=== PATIENT | female | born 1940 | race Caucasian/White ===

== ENCOUNTER → 2016-09-21 | Outpatient (CLI) | payer MEDICARE, OTHER | LOC: LAB.NP 17:26 | PROVIDERS: ATTEND Family Medicine | DX: D51.3 Other dietary vitamin B12 deficiency anemia (principal); E55.9 Vitamin D deficiency, unspecified ==

== ENCOUNTER 2017-03-21 21:40 | Observation (INO) | payer MEDICARE, OTHER ==
[2017-03-21] MEDS ORDERED: diazePAM 2 MG TAB PO ONE (22:01)
[2017-03-21] MEDS ORDERED: HYDROcodone 10MG/APAP 325MG 1 EA TAB PO ONE (22:01)
--- NOTE | 2017-03-21 22:52 | CT ---
PROCEDURE: Lumbar Spine CLINICAL HISTORY: 76 years ,Female ,low back and pelvic pain after fall with prev fx COMPARISON: 03/29/2016 TECHNIQUE: Contiguous axial images obtained through the lumbar spine without IV contrast. Coronal and sagittal reformatted images obtained. This exam was performed according to our department optimization program which includes automated exposure control, adjustment of the mA and/or kv according to patient size and/or use of iterative reconstruction technique. FINDINGS: There is leftward convexity lumbar curvature. 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 There is complete loss of the disc interspace at L5-S1 with subchondral sclerosis and vacuum disc phenomenon. There is moderate compression at L2 treated with vertebroplasty. The fracture was present on the previous examination but there has been small amount of interval loss of height as compared to the previous study. There is a new acute appearing compression fracture at T12 with mild loss of height. There is mild retropulsion with mild flattening of the anterior aspect of the thecal sac. T12-L1 level is unremarkable. At L1-2 there is mild narrowing of the central canal as a result of retropulsion of the posterior cortex and there is mild neural foraminal narrowing. L2-3: No significant central canal stenosis. L3-4: Mild disc bulging and facet arthropathy with mild narrowing of the central canal and neural foramina. L4-5: Mild bilateral neural foraminal stenosis. L5-S1: There is no central canal stenosis. There is severe bilateral neural foraminal stenosis worse on the left. There is also a fracture involving the superolateral aspect of the L5 vertebral body on the left which extends into the pedicle and superior articulating facet. IMPRESSION: Acute/subacute fracture at T12 with mild loss of height and mild retropulsion which results in flattening of the anterior aspect of the thecal sac Acute/subacute appearing fracture involving the left superolateral aspect of the L5 vertebral body extending into the pedicle and the left superior articulating facet Moderate chronic compression at L2 with vertebroplasty changes. There has been some interval progression of loss of height as compared to the previous study Additional changes as described above including bilateral L5 spondylolysis with grade 2 anterolisthesis. Electronically signed by: Natasha Ramos 03/21/2017 10:50 PM CDT
--- NOTE | 2017-03-21 22:59 | CT ---
PROCEDURE: Pelvis CLINICAL HISTORY: 76 years ,Female ,low back and pelvic pain after fall with prev fxr COMPARISON: None. TECHNIQUE: Contiguous axial images obtained through the pelvis without IV contrast. Coronal and sagittal reformatted images obtained. This exam was performed according to our department optimization program which includes automated exposure control, adjustment of the mA and/or kv according to patient size and/or use of iterative reconstruction technique. FINDINGS: Bilateral L5 spondylolysis with grade 2 anterolisthesis of L5 on S1. Fracture along the left superolateral aspect of the L5 vertebral body extending into the pedicle and the superior articulating facet on the left. The SI joints appear intact. Some irregularity of the right sacral ala which may reflect a previous fracture. The proximal femora appear intact. Diverticulosis. IMPRESSION: Acute or subacute fracture along the left aspect of L5 extending to the pedicle and left superior articulating facet Chronic L5 spondylolysis with grade 2 anterolisthesis No acute pelvic fracture noted Diverticulosis Question chronic right sacral alar fracture. Electronically signed by: Natasha Ramos 03/21/2017 10:58 PM CDT
--- NOTE | 2017-03-22 00:03 | ED.PDOC ---
History of Present Illness - General Chief Complaint: Back Pain or Injury Stated Complaint: back pain after falling Time Seen by Provider: 03/21/17 21:46 Source: patient Exam Limitations: no limitations - History of Present Illness Initial Comments: The patient is a 76-year-old female that fell at home today. She was bending over to pick something up while cooking supper when she lost her balance and fell backwards. She landed with her buttocks and back on the floor and her head hit the corner of the door. There is no laceration and no loss of consciousness. No evidence of any concussion. The patient has a mild bruise to her left forearm. She has a mild skin abrasion to her right knee. She is moving all extremities well. Most of her pain appears to be from S1 through about T11 clinically. The patient has had significant osteoporosis in the past and has had have kyphoplasty due to compression fracture from a previous fall. She appears to be neurologically at her baseline. This fall occurred approximately 2-3 hours prior to arrival. The patient is unable to get around on her own at this time. She was able to prior. Limitation is pain. Timing/Duration: momentarily Severity: severe Improving Factors: immobilization Worsening Factors: movement Associated Symptoms: denies symptoms Allergies/Adverse Reactions: Allergies Penicillins Allergy (Unknown, Verified 03/17/15 15:31) Omeprazole [From Prilosec] Allergy (Verified 03/29/16 16:22) Pneumococcal Polysaccharides [From Pneumovax] Allergy (Verified 03/17/15 15:31) Sulfamethoxazole w/Trimethoprim [From Bactrim] Allergy (Verified 03/17/15 15:31) Tetanus Toxoid Allergy (Verified 03/17/15 15:31) Home Medications: Ambulatory Orders HYDROcodone 10MG/APAP 325MG [[place] 10/325] 1 ea PO PRN PRN 03/25/13 Furosemide 40 mg PO DAILY 03/17/15 Multiple Vitamin [Multi Vitamin Daily] 1 tab PO DAILY 03/17/15 Spironolactone 100 mg PO DAILY 03/17/15 Tramadol HCl 50 mg PO QID 03/17/15 Ascorbic Acid [Vitamin C] 250 mg PO DAILY 03/29/16 Lactulose 10 gm PO DAILY 03/29/16 Sertraline HCl 100 mg PO DAILY 03/29/16 Review of Systems - Review of Systems Constitutional: States: no symptoms reported EENTM: States: no symptoms reported Respiratory: States: no symptoms reported Cardiology: States: no symptoms reported Gastrointestinal/Abdominal: States: no symptoms reported Genitourinary: States: no symptoms reported Musculoskeletal: States: back pain Skin: States: see HPI Neurological: States: anxiety Endocrine: States: no symptoms reported All other Systems: No Change from Baseline Past Medical History (General) - Patient Medical History Hx of COPD: Yes Hx Congestive Heart Failure: No Hx Diabetes: No Hx Gastroesophageal Reflux: Yes - Vaccination History Hx Tetanus, Diphtheria Vaccination: No - allergic to Hx Influenza Vaccination: Yes Hx Pneumococcal Vaccination: No - Social History Hx Tobacco Use: Yes - quit in 1997 Family Medical History - Family History Mother Family History: Unknown Physical Exam - Physical Exam General Appearance: Alert, Comfortable, No apparent distress Eye Exam: bilateral normal Ears, Nose, Throat: hearing grossly normal, normal ENT inspection, normal pharynx Neck: non-tender, full range of motion, supple Respiratory: chest non-tender, lungs clear, normal breath sounds, no respiratory distress, no accessory muscle use Cardiovascular/Chest: normal peripheral pulses, no edema Peripheral Pulses: radial,right: 2+, radial,left: 2+, dorsalis pedis,right: 2+, dorsalis pedis,left: 2+ Gastrointestinal/Abdominal: non tender, soft Rectal Exam: deferred Back Exam: other - the patient has tenderness to palpation over the spinous process of T12 or L1. No definite step-off. I see no bruising there. She is also tender to palpation adjacent to that. She hasn't noticed palpation but less so around the L4-S1 region. No skin laceration in that area. Extremity: normal range of motion, non-tender, no pedal edema, no calf tenderness, normal capillary refill Neurologic: toggler II-XII nml as tested, alert, oriented x 3 Skin Exam: normal color - multiple chronic bruises.skin abrasion to the right lateral knee Comments: . Vital Signs - 24 hr 03/21/17 21:46 Temperature 97.7 F Pulse Rate [ 80 Left] Respiratory 22 Rate Blood Pressure 124/68 [left] O2 Sat by Pulse 100 Oximetry Progress - Progress Progress: 03/22/17 00:05 the patient is a 76-year-old female presenting to the emergency room secondary to a fall with new and worsening back pain. The patient appears to have a new T12 compression fracture. There is also a linear fracture at L5 extending into one of the pedicles. It is not for certain that this is a new fracture. She also appears to have an old sacral ala fracture. The patient is not functional at this time due to pain. The patient will be admitted for pain control. Therapy may be able to evaluate in the morning and see what her functional status is going to be. the patient may yet need kyphoplasty in the future for pain control. Departure - Departure Clinical Impression: Thoracic compression fracture Qualifiers: Encounter type: initial encounter Fracture type: closed Qualified Code(s): S22.000A - Wedge compression fracture of unspecified thoracic vertebra, initial encounter for closed fracture Disposition: Admit Patient Home Medications: Ambulatory Orders HYDROcodone 10MG/APAP 325MG [[place] 10/325] 1 ea PO PRN PRN 03/25/13 Furosemide 40 mg PO DAILY 03/17/15 Multiple Vitamin [Multi Vitamin Daily] 1 tab PO DAILY 03/17/15 Spironolactone 100 mg PO DAILY 03/17/15 Tramadol HCl 50 mg PO QID 03/17/15 Ascorbic Acid [Vitamin C] 250 mg PO DAILY 03/29/16 Lactulose 10 gm PO DAILY 03/29/16 Sertraline HCl 100 mg PO DAILY 03/29/16 Decision To Admit - Decistion To Admit Decision to Admit Reason: Accidental Injury Decision to Admit Date: 03/22/17 Decision to Admit Time: 00:08
[2017-03-22] MEDS ORDERED: MAGNESIUM HYDROXIDE 30 ML UD PO PRN (00:25)
[2017-03-22] MEDS ORDERED: HYDROcodone 5MG/APAP 325MG 1 EA TAB PO PRN (00:25)
[2017-03-22] MEDS ORDERED: SODIUM CHLORIDE 0.9% (FLUSH) 10 ML SYG IV PRN (00:25)
[2017-03-22] MEDS ORDERED: IV SET AND CAP CHANGE INJ INJ SCH (00:30)
[2017-03-22] MEDS ORDERED: HYDROmorphone HCL INJ 2 MG/ML VIAL IV PRN (00:33)
--- NOTE | 2017-03-22 00:34 | HP ---
SUPERVISING PHYSICIAN: Scott Montero M.D. CHIEF COMPLAINT: Back pain status post same level fall. HISTORY OF PRESENT ILLNESS: Ms. King is a 76 year-old female patient that presented to the Emergency Department on 03/21/17 initially after she sustained a same level fall at home. She noted she was bent over to hot die picker something while she was cooking supper, lost her balance and fell backwards. She apparently landed on her buttocks on the floor as well as she hit her head on the corner of a door. She denies any loss of consciousness. She presented with a significant amount of pain from S1 through about T11. She does have a significant history of osteoporosis in the past having had a kyphoplasty due to a previous compression fracture this past fall. A CT scan of both her lumbar and pelvis were completed in the Emergency Department prior to admission and per radiology interpretation there was note of an acute subacute fracture at T12 with mild loss of height and mild retropulsion which resulted in flattening of the anterior aspect of the thecal sac. There was also note of an acute subacute appearing fracture involving the left superolateral aspect of the L5 vertebral body that was extending up in to the pedicle and left superior articulating facet. Given the degree of pain and requiring IV medications for pain control, and the CT findings, the patient was placed in observation on 03/22/17 for further evaluation with physical therapy and better pain control with IV pain medicine. She is placed in observation in stable condition. PAST MEDICAL HISTORY: 1. Hyperlipidemia. 2. Chronic obstructive pulmonary disease. 3. Previous H. pylori infection in summer treated successfully. 4. Rheumatoid arthritis. 5. Osteoporosis. PAST SURGICAL HISTORY: 1. Endometrial ablation in 1989. 2. Laparoscopic cholecystectomy with IOC by Dr. Ramos in 2014. 3. L2 kyphoplasty by Dr. Edwards on 03/30/16. HOME MEDICATIONS: 1. Linzess 145 mcg daily. 2. [place] 10/325, one as needed. 3. Lasix 40 mg daily. 4. Vitamin C 250 mg daily. 5. Tramadol 50 mg q.i.d. 6. Spironolactone 100 mg daily. 7. Multivitamin daily 1 tablet. ALLERGIES: PENICILLIN, SULFONAMIDES, FLUOXETINE, PRILOSEC, PNEUMOCOCCAL POLYSACCHARIDES AND TETANUS TOXOID. 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 She is and lives in [place]. Notes that she had a past history of cigarette smoking but quit with a 42 pack year history in 1997. She does drink alcohol on a social basis only. She does not use illicit drugs. REVIEW OF SYSTEMS: CONSTITUTIONAL: Denies any weakness, chills, fevers, unintentional weight loss. HEENT: Denies any vision changes, but notes this morning on admission she does have a headache from previous fall and hitting her head. RESPIRATORY: Denies any shortness of breath, cough, congestion. CARDIOVASCULAR: Denies any chest pains, palpitations or syncopal episodes. GASTROINTESTINAL: Denies any nausea, vomiting, diarrhea or any bowel habit changes. GENITOURINARY: Denies any dysuria, hematuria or other urinary symptoms. MUSCULOSKELETAL: As noted in the history of present illness, severe back pain status post fall. NEUROLOGIC: Does note she had some anxiety but no other neurologic or motor deficits. PHYSICAL EXAMINATION: VITAL SIGNS: Temperature 97.7, pulse 80, blood pressure 124/68, satting 100% with respiratory effort of 22. Weight is 54.8 kg. GENERAL: The patient is alert, comfortable on admission to the Medical/ Surgical floor. She appears to be in no acute distress. HEENT: Tympanic membranes are clear bilaterally. Oropharynx is pink and moist without any lesions. NECK: No jugular venous distention. Neck was supple, non-tender. Full range of motion. CHEST: Lungs are clear to auscultation bilaterally without any rhonchi, wheezing or rales. CARDIOVASCULAR: Regular rate and rhythm without appreciable murmurs, gallops, or rubs. ABDOMEN: Soft, non-tender. Positive bowel sounds. BACK: There is note of tenderness over the spinous process of T12 and L1, but no notable step-offs. She does have some paraspinous tenderness around the same area. No other traumatic injuries are noted. EXTREMITIES: She moves all extremities ad sofia with no weaknesses noted. There is no clubbing, cyanosis or edema. NEUROLOGIC: Cranial nerves II-XII are grossly intact. Facial features are symmetrical. Extraocular movements are within normal limits. There was no notable nystagmus. There is no notable neuromotor deficits. LABORATORY: CBC on admission showed a normal white count at 7.6 with hemoglobin 13.6, hematocrit 40.4, platelet count 265,000. Differential shows to be within normal limits. Chemistries show normal electrolytes with potassium 3.9, BUN 24, creatinine 0.95. Liver functions showed to be within normal limits. Urinalysis showed to be within normal limits. RADIOLOGY: She had a pelvis and lumbar CT in the E. R. and per radiology interpretation there was note on the lumbar spine CT a subacute acute fracture of T12 with mild loss of height and mild retropulsion which have resulted in flattening of the anterior aspect of the thecal sac. Also of note was subacute versus acute-appearing fracture involving the left superolateral aspect of the L5 vertebral body extending into the pedicle in the left superior articulating facet. CT of the pelvis was note of acute and subacute fracture along the left aspect of L5 extending to the pedicle and left superior articulating facet and chronic L5 spondylosis with grade 2 anterior lithiasis but no acute pelvic fractures noted. At time of admission, a cervical spine CT and head CT were pending. ASSESSMENT: 1. Acute subacute fracture of T12 compression fracture with an L5 fracture involving the left superolateral pedicle and the left superior articulating facet. 2. Same level fall resulting in fractures as noted in number 1. 3. History of osteoporosis probably contributing to recent fractures with the patient having a history of multiple falls over the last several months. 4. Chronic obstructive pulmonary disease without noted exacerbation. 5. Rheumatoid arthritis. PLAN: The patient will be placed in Observation tonight to assist with pain control and to have Physical Therapy evaluation in the morning. The fracture appears to be stable at this point. Should she show good ability to control pain with p.o. medications and is cleared by Physical Therapy, conservative treatment will be warranted with considerations for kyphoplasty in the near future after further evaluation with an MRI upon discharge. [facility] did make a referral in case the patient needed some adjunct faculty for medical terminology rehab facility assistance, but at this point the patient's discharge plan is to discharge home with conservative measures. Again, will reevaluate in the morning with anticipation of discharging. Until then, will continue to monitor and treat appropriately. #[id number] [facility]
[2017-03-22] MEDS: KETOROLAC TROMETHAMINE INJ 30 MG/ML VIAL IV SCH ×3 (02:01→17:16)
[2017-03-22] MEDS: SODIUM CHLORIDE 0.9% 1000ML 1,000 ML IVS PRN (03:03)
--- NOTE | 2017-03-22 10:02 | CT ---
Study: CT of the Head. Indication: s/p fall same level Technique: Axial CT images of the head were acquired without intravenous contrast. This exam was performed according to our departmental dose-optimization program, which includes automated exposure control, adjustment of the mA and/or kV according to patient size and/or use of iterative reconstruction technique. Comparison: March 28, 2016. Findings: No CT evidence of acute ischemia, acute hemorrhage, mass, mass effect, midline shift, or extra-axial fluid collection. Ventricles are normal in configuration without hydrocephalus. Patchy hypoattenuation of the periventricular and subcortical white matter noted. This is nonspecific but most consistent with chronic microvascular ischemic change. Global parenchymal volume loss and intracranial atherosclerosis noted as well. Paranasal sinuses are adequately aerated. Mastoid air cells are adequately aerated. Osseous structures and soft tissues are unremarkable. Impression: 1. No CT evidence of acute intracranial abnormality. 2. Senescent changes. Electronically signed by: Tony Ha MD 03/22/2017 10:00 AM CDT
--- NOTE | 2017-03-22 10:27 | CT ---
Study: CT cervical spine. Indication: s/p fall injury with neck pain. Technique: Axial CT images were acquired through the cervical spine without intravenous contrast. Coronal and sagittal reformats performed. This exam was performed according to our departmental dose-optimization program, which includes automated exposure control, adjustment of the mA and/or kV according to patient size and/or use of iterative reconstruction technique. Comparison: None. Findings: No acute cervical fracture identified. Vertebral body height maintained. Reversal of normal cervical lordosis. Trace anterolisthesis C4 on C5 which appears to be degenerative in etiology. Multilevel cervical disc disease noted and most pronounced at C5-C6 where there is severe disc space height loss and disc osteophyte formation. At least mild spinal canal narrowing and mild left and moderate right neural foraminal narrowing at this level. Atherosclerosis carotid arteries. Impression: No CT evidence of acute cervical fracture. Cervical disc disease as above. Dedicated MRI cervical spine can better evaluate as clinically indicated. Electronically signed by: Tony Ha MD 03/22/2017 10:25 AM CDT
[2017-03-22] MEDS: HYDROcodone 10MG/APAP 325MG 1 EA TAB PO PRN (17:15)
[2017-03-22] MEDS ORDERED: HYDROcodone 10MG/APAP 325MG 1 EA TAB PO PRN (19:40)
--- NOTE | 2017-03-22 19:42 | PCM.CORE ---
Physician DVT/VTE - Nurse DVT Assessment & Total Each Risk Factor Represents 3 Points: Age over 75 years DVT Assessment Score: 3 - 3-4 High Risk Treatments: Early Ambulation *, Sequential Compression Device Pharmacological: Enoxaparin 40 mg SQ Daily
[2017-03-22] MEDS ORDERED: ENOXAPARIN SODIUM 40 MG/0.4 ML SYG SUBCU ONE (20:03)
[2017-03-22] MEDS ORDERED: traMADol HCL 50 MG TAB ONE (20:03)
[2017-03-22] MEDS: traMADol HCL 50 MG TAB PO SCH (20:28)
[2017-03-22] MEDS: ENOXAPARIN SODIUM 40 MG/0.4 ML SYG SUBCU SCH ×2 (20:28→20:33)
[2017-03-23] MEDS: KETOROLAC TROMETHAMINE INJ 30 MG/ML VIAL IV SCH ×2 (00:48→09:26)
[2017-03-23] MEDS: SODIUM CHLORIDE 0.9% 1000ML 1,000 ML IVS PRN (04:26)
[2017-03-23 06:35] VITALS: O2SAT 96
[2017-03-23] MEDS ORDERED: SPIRONOLACTONE 25 MG TAB ONE (07:19)
[2017-03-23] MEDS ORDERED: ASCORBIC ACID 500 MG TAB ONE (07:19)
[2017-03-23] MEDS ORDERED: FUROSEMIDE 40 MG TAB ONE (07:19)
[2017-03-23] MEDS ORDERED: traMADol HCL 50 MG TAB ONE ×2 (07:20→11:22)
[2017-03-23] MEDS: HYDROcodone 10MG/APAP 325MG 1 EA TAB PO PRN (08:06)
[2017-03-23] MEDS ORDERED: MULTIPLE VITAMIN 1 EA TAB PO SCH (09:00)
[2017-03-23] MEDS ORDERED: NON-FORMULARY MEDICATION 1 EA MIS (Linaclotide [Linzess] 145 MCG) PO SCH (09:00)
[2017-03-23] MEDS ORDERED: FUROSEMIDE 40 MG TAB PO SCH (09:00)
[2017-03-23] MEDS ORDERED: ASCORBIC ACID 500 MG TAB PO SCH (09:00)
[2017-03-23] MEDS ORDERED: SPIRONOLACTONE 25 MG TAB PO SCH (09:00)
[2017-03-23] MEDS: traMADol HCL 50 MG TAB PO SCH ×2 (09:27→12:54)
[2017-03-23 10:22] VITALS: BP 144/80; TEMP 98.3
--- NOTE | 2017-03-25 13:34 | DS ---
SUPERVISING PHYSICIAN: Scott Montero MD DISCHARGE DIAGNOSIS: 1. Acute subacute fracture of T12 compression fracture with an L5 fracture involving the left superolateral pedicle and the left superior articulating facet and chronic ongoing pain management. 2. Same level fall resulting in fractures as noted in number 1. 3. History of osteoporosis probably contributing to recent fractures with the patient having a history of multiple falls over the last several months. 4. Chronic obstructive pulmonary disease without noted exacerbation. 5. Rheumatoid arthritis. HISTORY OF PRESENT ILLNESS: Ms. King is a 76 year-old female patient that presented to the Emergency Department on 03/21/17 initially after she sustained a same level fall at home. 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 She apparently landed on her buttocks on the floor as well as she hit her head on the corner of a door. She denies any loss of consciousness. She presented with a significant amount of pain from S1 through T11. She does have a significant history of osteoporosis in the past having had a kyphoplasty due to a previous compression fracture from past falls. A CT scan of both her lumbar and pelvis were completed in the Emergency Department and prior to admission and per radiology interpretation there was note of an acute subacute fracture involving T12 with mild loss of height and mild retropulsion which resulted in flattening of the anterior aspect of the thecal sac. There was also note of an acute subacute appearing fracture involving the left superolateral aspect of the L5 vertebral body which extended up into the pedicle and left superior articulating facet. Given the degree of pain and requiring IV medications for pain control and CT findings, the patient was placed in observation on 03/22/17 for further evaluation with physical therapy and to obtain a better pain control with IV medicine and further observation. She was placed in observation in stable condition. LABORATORY: CBC on admission showed a white count of 7.6, at discharge it was 5.9. Hemoglobin and hematocrit were stable at 12.8 and 38.0 at discharge. Platelet count 329,000, differential was within normal limits. Chemistries showed normal electrolytes both on admission and at discharge with the final being under 14 and creatinine of 0.58. Calcium was normal at 8.2. Liver functions showed to be within normal limits. Urinalysis showed to be within normal limits. RADIOLOGY: She had a lumbar spine CT and a pelvis CT in the Emergency Department prior to admission and per radiology interpretation there was note of an acute subacute fracture at T12 with mild loss of height and mild retropulsion which resulted in flattening of the anterior aspect of the thecal sac. There was also note of an acute subacute appearing fracture involving the left superolateral aspect of L5 and the vertebral body extending into the pedicle and left superior articular facet. There is also note of moderate chronic compression at L2 with vertebroplasty changes. Pelvis CT per radiology interpretation showed no acute pelvic fracture. There was also question of a chronic right sacral ulnar fracture. After admission to the medical/surgical floor she had a cervical spine CT and per radiology interpretation was note of no CT evidence of acute cervical fracture but notable cervical disk disease. Please refer to that final report for full details. She also had a head CT without contrast on admission and per radiology interpretation there was no CT evidence of acute intracranial abnormalities. HOSPITAL COURSE: Ms. King was admitted as noted above for acute compression fracture requiring IV pain medication initially for pain control and evaluation by physical therapy. She was provided Dilaudid for pain control and then transitioned to p.o. [place] prior to discharge. She clinically did well. She showed no neurological symptoms, had no increase in pain and was cleared by physical therapy as safe to be discharged home to be followed up in outpatient clinical setting. PLAN: Ms. King was discharged on 03/23/17 with instructions to followup with Dr. Jara on 04/04/17 at 9 o'clock. She is also scheduled for an MRI prior to that appointment of the T-spine and L-spine without contrast with those results to be sent to Dr. Jara' office. She was told to resume her home medications as directed that included [place] for pain control as well as Tramadol. She is to return to the hospital or call Dr. Jara' office if any numbness is noted in her legs, change in sensations or any weakness occurrence, worsening of pain or other concerning symptoms. She was given a complete neurological precautions prior to discharge. She also did have a consultation by [facility] should she show the need for continued rehabilitation once she is seen in an outpatient setting. DISCHARGE DIET: Regular diet as tolerated. ACTIVITY: No heavy lifting no jumping, no strenuous exercises until seen in followup by Dr. Jara' office. No new prescriptions were provided at discharge. She was to resume all her previous medications. DISCHARGE CONDITION: Stable and improved. #[id number] KERRY
== END 2017-03-23 13:39 | disposition home or self-care (01) ==
LOC: ER 21:40 → MS 03-22 00:32
PROVIDERS: ADMIT Emergency Medicine; ATTEND Nurse Practitioner Family
DX: S22.080A Wedge compression fracture of T11-T12 vertebra, initial encounter for closed fracture (principal); S32.058A Other fracture of fifth lumbar vertebra, initial encounter for closed fracture; S09.8XXA Other specified injuries of head, initial encounter; M81.0 Age-related osteoporosis without current pathological fracture; J44.9 Chronic obstructive pulmonary disease, unspecified; M06.9 Rheumatoid arthritis, unspecified; M50.322 Other cervical disc degeneration at C5-C6 level; M43.06 Spondylolysis, lumbar region; M48.06 Spinal stenosis, lumbar region; R10.2 Pelvic and perineal pain; K57.30 Diverticulosis of large intestine without perforation or abscess without bleeding; W18.39XA Other fall on same level, initial encounter; Y93.89 Activity, other specified; Y92.000 Kitchen of unspecified non-institutional (private) residence as the place of occurrence of the external cause; Z79.899 Other long term (current) drug therapy; Z88.0 Allergy status to penicillin; Z88.2 Allergy status to sulfonamides; Z88.7 Allergy status to serum and vaccine; Z88.8 Allergy status to other drugs, medicaments and biological substances; Z87.891 Personal history of nicotine dependence; Z90.49 Acquired absence of other specified parts of digestive tract
CPT/HCPCS: 36415 ×2; 70450; 72125; 72131; 72192; 80053 ×2; 81001; 85025 ×2; 94760 ×3; 96374; 96375; 96376 ×2; 97116; 97162; 99284; G0378; G8978; G8979; G8980; J1170; J1885 ×5; J7030 ×3

== ENCOUNTER → 2017-04-04 | Outpatient (CLI) | payer MEDICARE, OTHER ==
--- NOTE | 2017-04-06 16:24 | MRI ---
EXAM DESCRIPTION: Thoracic Spine w/o Contrast CLINICAL HISTORY: BACK PAIN. Symptoms for one week. Unable to bend or walk for long periods. Fall at home. Hit back on tile floor. COMPARISON: None Available. TECHNIQUE: MRI of the thoracic spine is performed according to our usual protocol with axial and sagittal multi sequence imaging. FINDINGS: There are acute compression fractures of the T10 and T12 vertebral bodies. There is up to 30% loss of stature at T10 along the inferior endplate. There is up to 30% loss of stature at T12 along the superior endplate. There is 2 mm bony retropulsion along the superior endplate of T12. Remaining vertebral body statures maintained. Multilevel large hemangiomas are demonstrated throughout the thoracic levels, the largest of which is at T11. Mild multilevel thoracic disc desiccation. There is no significant disc bulge, spinal canal, or neural foraminal stenosis. Normal size and signal in the thoracic spinal cord. IMPRESSION: 1. Acute compression fractures of the T10 and T12 vertebral bodies. These would be amenable to vertebral body augmentation. 2. Mild multilevel thoracic spondylosis. Electronically signed by: Camden Rey MD 04/06/2017 4:22 PM CDT
--- NOTE | 2017-04-06 17:15 | MRI ---
EXAM DESCRIPTION: Lumbar Spine w/o Contrast CLINICAL HISTORY: BACK PAIN. Recent fall at home. Hit back on tile floor. Pain with bending or walking. COMPARISON: CT lumbar spine 03/21/2017 TECHNIQUE: MRI of the lumbar spine is performed according to our usual protocol with axial and sagittal multi sequence imaging. FINDINGS: The designated L5-S1 disc space is on axial T2 image 3. There is moderate levoconvex curvature of the mid lumbar spine. An acute compression fracture of the T12 vertebral body is demonstrated with up to 30% loss of stature along the superior endplate. 2 mm bony retropulsion along the superior endplate without evidence of spinal canal stenosis. There is a chronic compression fracture of the L2 vertebral body which is post augmentation. There is chronic bilateral L5 spondylolysis with grade 2 spondylolisthesis of L5 on S1 by up to 13 mm again demonstrated. The fracture line in the left superolateral aspect of L5 extending into the posterior elements is demonstrated on today's exam, but shows no associated edema, and is most consistent with a chronic fracture. The conus medullaris terminates normally. L1-2: Disc desiccation with mild disc narrowing. Mild facet hypertrophy. Slight bony retropulsion along the right posterolateral aspect of the superior L2 endplate with mild right neural foraminal stenosis. The spinal canal and left neural foramen are patent. L2-3: Disc desiccation. Mild disc narrowing. Mild facet hypertrophy with ligamentum flavum thickening. No spinal canal or neural foraminal stenosis. L3-4: Disc desiccation. Disc height is preserved. Moderate facet hypertrophy with ligamentum flavum thickening. Minimal posterior disc bulge with mild bilateral neural foraminal stenosis. The spinal canal is patent. L4-5: Disc desiccation. Moderate facet hypertrophy with ligamentum flavum thickening. Small posterior disc osteophyte complex with no spinal canal or neural foraminal stenosis. L5-S1: Bilateral L5 spondylolysis with grade 2 spondylolisthesis. Uncovering and posterior bulging of the disc with severe left greater than right neural foraminal stenosis. The spinal canal is patent. IMPRESSION: 1. Acute compression fracture of the T12 vertebral body. This would be amenable to vertebral body augmentation. 2. 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 3. Chronic compression fracture at L2 which is post augmentation 4. Other findings as above. Electronically signed by: Camden Rey MD 04/06/2017 5:12 PM CDT
== END ==
LOC: MRI 13:58
PROVIDERS: ATTEND Family Medicine
DX: S22.089A Unspecified fracture of T11-T12 vertebra, initial encounter for closed fracture (principal); S32.059A Unspecified fracture of fifth lumbar vertebra, initial encounter for closed fracture

== ENCOUNTER → 2017-07-21 | Outpatient (CLI) | payer MEDICARE, OTHER | END | disposition home or self-care (01) | LOC: GMAL 13:05 | PROVIDERS: ATTEND Family Medicine | DX: D51.3 Other dietary vitamin B12 deficiency anemia (principal); E55.9 Vitamin D deficiency, unspecified ==

== ENCOUNTER → 2017-10-24 | Outpatient (CLI) | payer MEDICARE, OTHER | LOC: GMAL 17:53 | PROVIDERS: ATTEND Family Medicine | DX: I50.9 Heart failure, unspecified (principal) ==

== ENCOUNTER → 2018-03-01 | Outpatient (CLI) | payer MEDICARE, OTHER | LOC: GMAL 17:51 | PROVIDERS: ATTEND Family Medicine | DX: N30.00 Acute cystitis without hematuria (principal) ==

== ENCOUNTER 2018-06-03 14:55 | Emergency (ER) | payer MEDICARE, OTHER ==
[2018-06-03] MEDS ORDERED: POVIDONE IODINE 10 % 15 ML UD TOP ONE (15:12)
[2018-06-03 15:15] VITALS: TEMP 98.4; O2SAT 100
[2018-06-03] MEDS ORDERED: DOXYCYCLINE HYCLATE CAP 100 MG CAP PO ONE (15:20)
--- NOTE | 2018-06-03 15:24 | ED.PDOC ---
History of Present Illness - General Chief Complaint: Lower Extremity Injury Stated Complaint: cat scratch to leeg Time Seen by Provider: 06/03/18 15:07 Source: patient Exam Limitations: no limitations - History of Present Illness Initial Comments: the patient is a 77-year-old female presenting to the emergency room secondary to 2 lacerations to her left lower leg that were caused byher cat scratching her. The first is a smaller V-shaped laceration approximately a centimeter and a half in length on each leg. It is fairly deep. The second laceration is larger. Please refer to nurse's exact measurements. It is to the lateral left lower leg. On this one it is a large skin tear and the patient actually cut the dangling skin off so there is a large defect that we will be unable to cover back with skin. The patient reports being allergic to Augmentin. Timing/Duration: momentarily Severity: moderate Improving Factors: nothing Worsening Factors: nothing Associated Symptoms: denies symptoms Allergies/Adverse Reactions: Allergies Penicillins Allergy (Unknown, Verified 03/17/15 15:31) Omeprazole [From Prilosec] Allergy (Verified 03/29/16 16:22) Pneumococcal Polysaccharides [From Pneumovax] Allergy (Verified 03/17/15 15:31) Sulfamethoxazole w/Trimethoprim [From Bactrim] Allergy (Verified 03/17/15 15:31) Tetanus Toxoid Allergy (Verified 03/17/15 15:31) Home Medications: Ambulatory Orders HYDROcodone 10MG/APAP 325MG [[place] 10/325] 1 ea PO PRN PRN 03/25/13 Furosemide 40 mg PO DAILY 03/17/15 Multiple Vitamin [Multi Vitamin Daily] 1 tab PO DAILY 03/17/15 Spironolactone 100 mg PO DAILY 03/17/15 Tramadol HCl 50 mg PO QID 03/17/15 Ascorbic Acid [Vitamin C] 250 mg PO DAILY 03/29/16 Linaclotide [Linzess] 145 mcg PO DAILY 03/22/17 Doxycycline (Monohydrate) [Doxycycline] 100 mg PO DAILY #14 tab 06/03/18 Review of Systems - Review of Systems Constitutional: States: no symptoms reported EENTM: States: no symptoms reported Respiratory: States: no symptoms reported Cardiology: States: no symptoms reported Gastrointestinal/Abdominal: States: no symptoms reported Genitourinary: States: no symptoms reported Musculoskeletal: States: no symptoms reported Skin: States: see HPI Neurological: States: no symptoms reported Endocrine: States: no symptoms reported All other Systems: No Change from Baseline Past Medical History (General) - Patient Medical History Hx Seizures: No Hx Stroke: No Hx Asthma: No Hx of COPD: No Hx Congestive Heart Failure: No Hx Pacemaker: No Hx Hypertension: No Hx Diabetes: No Hx Gastroesophageal Reflux: Yes Hx MRSA: No - Vaccination History Hx Tetanus, Diphtheria Vaccination: No - Allergic Hx Influenza Vaccination: Yes Hx Pneumococcal Vaccination: No - Allergic - Social History Hx Tobacco Use: Yes Hx Alcohol Use: No Hx Substance Use: No Hx Physical Abuse: No Hx Emotional Abuse: No Family Medical History - Family History Mother Family History: Unknown Living Status: Hx Family Asthma: No Hx Family Congestive Heart Failure: Yes Hx Family Hypertension: No Hx Family Stroke: No Hx Cardiac Disease: No Hx Family Diabetes: No Hx Family Cancer: No Physical Exam - Physical Exam General Appearance: Alert, Comfortable, No apparent distress Eye Exam: bilateral normal Ears, Nose, Throat: hearing grossly normal, normal pharynx Neck: non-tender, supple Respiratory: no respiratory distress, no accessory muscle use Cardiovascular/Chest: normal peripheral pulses, no edema Peripheral Pulses: dorsalis pedis,right: 2+, dorsalis pedis,left: 2+ Gastrointestinal/Abdominal: non tender, soft Rectal Exam: deferred Extremity: normal range of motion, no pedal edema, no calf tenderness - except under the laceration sites, normal capillary refill Neurologic: tie in hand II-XII nml as tested, alert, normal mood/affect, oriented x 3 Skin Exam: other - see history of present illness. See nurse's notes. Comments: Vital Signs - 24 hr 06/03/18 15:07 Temperature 98.4 F Pulse Rate [ 95 H Left Brachial] Respiratory 20 Rate Blood Pressure 156/97 [Left Arm] O2 Sat by Pulse 100 Oximetry Progress - Progress Progress: 06/03/18 15:45 the patient is a 77-year-old female presenting to the emergency room secondary to a large skin tear and a laceration to her left lower extremity caused by her house cat scratching her. There is a very large defect in the lateral skin tear. After risks and benefits of repair were explained the patient did agree to proceed with repair. The wounds were irrigated with Betadine and saline. One simple suture of 4-0 Ethilon was placed in the posterior laceration. Antibiotic ointment and Band-Aid were applied here. On the lateral skin tear 2 skin flaps were reapproximated proximally with 4 simple sutures of 4-0 Ethilon. There is still a large open defect secondary to lack of skin to reapproximate. We are unable to undermine to reduce the size of the defect secondary to thinness of the skin. A wet-to-dry dressing was applied. She is to follow-up with Dr. Jara tomorrow to decide what further longer-term dressings he wants her to use on this versus getting her set up for a skin graft. The patient is going to be placed on doxycycline 100 mg a day for 14 days. She needs to take this medication with food. ER warnings were given. She reports allergies to penicillin and tetanus so neither of these were given today. Departure - Departure Clinical Impression: Skin tear Disposition: Discharge to Home or Self Care Condition: Fair Departure Forms: ED Discharge - Pt. Copy, Patient Portal Self Enrollment Instructions: Laceration Repair With Stitches (DC) Diet: regular diet Activity: increase activity as tolerated Referrals: Umberto Jara III, MD [Primary Care Provider] - 1-2 Weeks Prescriptions: Doxycycline (Monohydrate) [Doxycycline] 100 mg PO DAILY #14 tab Home Medications: Ambulatory Orders HYDROcodone 10MG/APAP 325MG [[place] 10/325] 1 ea PO PRN PRN 03/25/13 Furosemide 40 mg PO DAILY 03/17/15 Multiple Vitamin [Multi Vitamin Daily] 1 tab PO DAILY 03/17/15 Spironolactone 100 mg PO DAILY 03/17/15 Tramadol HCl 50 mg PO QID 03/17/15 Ascorbic Acid [Vitamin C] 250 mg PO DAILY 03/29/16 Linaclotide [Linzess] 145 mcg PO DAILY 03/22/17 Doxycycline (Monohydrate) [Doxycycline] 100 mg PO DAILY #14 tab 06/03/18 Additional Instructions: the patient is a 77-year-old female presenting to the emergency room secondary to a large skin tear and a laceration to her left lower extremity caused by her house cat scratching her. There is a very large defect in the lateral skin tear. After risks and benefits of repair were explained the patient did agree to proceed with repair. The wounds were irrigated with Betadine and saline. One simple suture of 4-0 Ethilon was placed in the posterior laceration. Antibiotic ointment and Band-Aid were applied here. On the lateral skin tear 2 skin flaps were reapproximated proximally with 4 simple sutures of 4-0 Ethilon. There is still a large open defect secondary to lack of skin to reapproximate. We are unable to undermine to reduce the size of the defect secondary to thinness of the skin. A wet-to-dry dressing was applied. She is to follow-up with Dr. Jara tomorrow to decide what further longer-term dressings he wants her to use on this versus getting her set up for a skin graft. The patient is going to be placed on doxycycline 100 mg a day for 14 days. She needs to take this medication with food. ER warnings were given. She reports allergies to penicillin and tetanus so neither of these were given today.
[2018-06-03] MEDS ORDERED: NEOMYCIN-BACITRACIN-POLYMYXIN 0.9 GM UD TOP ONE (15:43)
[2018-06-03] MEDS ORDERED: KETOROLAC TROMETHAMINE INJ 30 MG/ML VIAL IM ONE (15:54)
[2018-06-03 16:15] VITALS: BP 141/77
== END 2018-06-03 16:15 | disposition home or self-care (01) ==
LOC: ER 14:55
DX: S81.812A Laceration without foreign body, left lower leg, initial encounter (principal); K21.9 Gastro-esophageal reflux disease without esophagitis; Z87.891 Personal history of nicotine dependence; Z88.0 Allergy status to penicillin; Z88.7 Allergy status to serum and vaccine; Z88.2 Allergy status to sulfonamides; Z88.8 Allergy status to other drugs, medicaments and biological substances; Z79.899 Other long term (current) drug therapy; W55.03XA Scratched by cat, initial encounter

== ENCOUNTER → 2019-06-20 | Outpatient (CLI) | payer MEDICARE, OTHER ==
[~2019-06-20] MED LIST: SODIUM CHLORIDE 0.9% 1000ML 1,000 ML IVS SCH
[2019-06-20 13:32] VITALS: BP 132/85; TEMP 98.2; O2SAT 96
--- NOTE | 2019-06-21 09:13 | CT ---
EXAM DESCRIPTION: Abdomen/Pelvis w/o Contrast: Computed Tomography. CLINICAL HISTORY: 78 years Female EPIGASTRIC PAIN. Afebrile. Normal white blood cell count. Early satiety. Epigastric and right lower quadrant pain. COMPARISON: Abdomen and pelvis without and with IV contrast May 2015. TECHNIQUE: Spiral-axial scans 2.5 x 2.5 mm intervals through the abdomen and pelvis without oral or IV contrast. Coronal and sagittal 2.0 mm reconstructions. Total Exam DLP: 384.19 mGy-cm. This exam was performed according to our departmental CT dose-optimization program which includes automated exposure control, adjustment of the mA and/or kV according to patient size and/or use of iterative reconstruction technique; to reduce radiation dose to as low as reasonably achievable (ALARA). FINDINGS: Lung bases and pleura: Minimal atelectasis left lung base. Coronary artery calcium. Liver, stomach, spleen, and adrenal glands: Moderate hiatal hernia containing fluid fluid and minimal air. New since the prior study. Moderate distention of the intra-abdominal stomach with air-fluid level. Minimal distention of the proximal duodenum with fluid. Duodenum and proximal jejunum shifted to the midline or right of midline. Liver left lobe is enlarged with craniocaudal dimension greater than the right lobe. Terminal ileum, cecum,, hepatic flexure and proximal transverse colon are between the abdominal wall and the liver. Other solid organs are negative. Pancreas, Gallbladder, and Ducts: Surgical clips in the gallbladder fossa. Mild duct dilation. Pancreas negative. Kidneys and Ureters: 3 mm stone inferior collecting system left kidney without hydronephrosis. Subcentimeter juxta cortical cyst upper pole left kidney. Stable since the prior study. Peripheral calcification posterior right kidney in the same location as wall of the cyst seen on the prior study. No hydronephrosis. No hydroureter or ureteral stones bilaterally.. Mesentery: No free air or free fluid. Aorta: Moderate atherosclerotic calcifications including proximal major branch vessels. No aneurysm. Small Bowel: Proximal jejunum shifted to the right as previously described. No significant distention or air-fluid levels. Terminal Ileum/Cecum: Located between the liver capsule and the right anterior abdominal wall, and lateral right hemidiaphragm as previously described. No signs of obstruction or other complications. Normal caliber of the appendix containing air. No inflammatory changes. Colon: Reversed positions of the ascending colon and cecum as described. Scattered diverticula and radiodense material in the mid transverse and distal colon also within the diverticula. Sigmoid is markedly redundant with gas in the most superior segment in the mid right abdomen. Large focal collection of radiodense material in the proximal sigmoid. No complications.. Pelvic Organs: Retroflexed uterus with calcifications. Ovaries not well seen. No fluid in the cul-de-sac. Urinary bladder nondistended with no radiodense stones. Spine and Bony Pelvis: Grade 2 anterolisthesis and significant disc space loss and disc desiccation L5-S1 with bilateral foraminal stenosis more on the left. Stable since the prior study. Moderate compression deformity of the L2 vertebral body with prior augmentation. Moderate compression fracture and deformity T12 with prior augmentation. Minimal cement in the T12-L1 disc space. Prior augmentation T10 with minimal compression deformity. Augmentation material in the anterior spinal canal running from the inferior T9 vertebral body to the superior T11 vertebral body. Mid lumbar levoscoliosis. Multiple compression fractures and augmentation has been performed since the prior study. Bilateral mild hip joint arthrosis. Degenerative gas in the SI joints. Abdominal Wall/Back Soft Tissues: Minimal anterior protrusion of the midline abdominal raphe at the L3 level with a segment of transverse colon immediately posterior to the raphe. Diastases of the umbilicus but not containing bowel. Bilateral fatty inguinal hernias. IMPRESSION: 1. Moderate hiatal hernia containing fluid and minimal air. New since the prior study. Unusual rotation of the duodenum and proximal jejunum in the midline and to the right of midline. This has progressed since the prior study. No obstruction. 2. Elongated left lobe of the liver, slightly larger than the right lobe in the craniocaudal axis with no apparent focal lesions in the liver. Correlate with liver clinical findings if any. No ascites. 3. Terminal ileum, cecum, and proximal ascending colon located between the right lobe of the liver lateral right hemidiaphragm and abdominal wall. No complications. This was not present on the prior study. Markedly redundant sigmoid colon apex higher in the abdomen than the prior study. 4. Bilateral renal cysts stable since the prior study. 3 mm radiodense stone lower pole left kidney nonobstructing and stable. 5. Compression type vertebral body fractures at L2, T12, and T10 since the prior study with augmentation procedure. Minimal material leakage at T12 and T10 as described. Scoliosis has progressed. Grade 2 anterolisthesis L5-S1 with bilateral foraminal stenosis stable. 6. Retroflexed uterus stable since the prior study. CRITICAL COMMUNICATION: The critical value was discussed directly by phone by Dr. Richards, with Dr. Jara at approximately 0900 hours, on 06/21/2019. Electronically signed by: John Richards MD 06/21/2019 9:11 AM CDT
== END ==
LOC: CT 09:00
PROVIDERS: ATTEND Family Medicine
DX: E86.0 Dehydration (principal); K44.9 Diaphragmatic hernia without obstruction or gangrene; K59.00 Constipation, unspecified; K31.9 Disease of stomach and duodenum, unspecified; N28.1 Cyst of kidney, acquired; N20.0 Calculus of kidney; N85.9 Noninflammatory disorder of uterus, unspecified; S32.020D Wedge compression fracture of second lumbar vertebra, subsequent encounter for fracture with routine healing; S22.080D Wedge compression fracture of T11-T12 vertebra, subsequent encounter for fracture with routine healing; S22.070D Wedge compression fracture of T9-T10 vertebra, subsequent encounter for fracture with routine healing; M43.17 Spondylolisthesis, lumbosacral region; M41.87 Other forms of scoliosis, lumbosacral region
CPT/HCPCS: 74176; 96360; 96361; J7030

== ENCOUNTER → 2019-08-27 | Outpatient (CLI) | payer MEDICARE, OTHER | LOC: GMAL 17:10 | PROVIDERS: ATTEND Family Medicine | DX: D51.3 Other dietary vitamin B12 deficiency anemia (principal); R53.82 Chronic fatigue, unspecified; E55.9 Vitamin D deficiency, unspecified; N18.9 Chronic kidney disease, unspecified; Z79.899 Other long term (current) drug therapy ==

== ENCOUNTER → 2019-10-28 | Outpatient (CLI) | payer MEDICARE, OTHER ==
--- NOTE | 2019-10-30 14:24 | MRI ---
EXAM DESCRIPTION: Lumbar Spine w/o Contrast : Magnetic Resonance Imaging. CLINICAL HISTORY: LOW BACK PAIN COMPARISON: MRI scan lumbar spine March 2017. Lumbar spine x-ray September 2017. TECHNIQUE: Multiplanar, multiple standard sequences, non contrast MRI, lumbar spine. FINDINGS: L5-S1: The disc is well visualized on axial T2 series 501, image 3. Moderate disc space loss with 13 mm grade 2 anterolisthesis, similar to prior study. Moderate bilateral endplate reactive changes. AP canal diameter 12 mm at the disc space and 1.9 cm above the disc space. Anterior disc bulge and spurs. Posterior disc is uncovered due to spondylolisthesis. Degenerative hypertrophy of the flavum ligaments and facet joints (posterior elements) more right than left. Moderate to severe right foraminal narrowing and severe left foraminal stenosis. Stable since the prior study. Bilateral L5 pars interarticularis and spondylolysis. Reduced height of the anterior central and posterior L4 vertebral body. 20 mm anterior, 12 mm centrally, and 20 mm posteriorly compared to 25 mm anteriorly, 22 mm centrally and 24 mm posteriorly on prior scan. Minimal edema anterior vertebral body especially the superior endplate. Fracture lines are noted in the right inferior aspect above the endplate and also posterior in the endplate superiorly. 3 mm retropulsion superior endplate. AP canal diameter 9 mm. No marrow edema in the pedicles bilaterally or the transverse processes or lamina/posterior processes. L4-L5: Disc desiccation and expansion into the concave L4 endplate. No bulging. No significant narrowing. Hypertrophic posterior elements. Sclerosis of the right L4 pars interarticularis and lysis of the left L4 pars interarticularis. Mild narrowing left foramen with right foramen patent. Trace anterolisthesis. L3-L4: Disc desiccation with expansion in the concave superior L3 endplate. AP canal diameter 9 mm at the level of the retropulsion 12 mm at the disc space. Mild hypertrophic degeneration of the posterior elements. No significant disc bulging. Moderate to severe left foraminal narrowing with mild narrowing right foramen. L2-L3: Disc desiccation with no significant bulging. Posterior mild endplate reactive changes. Mild degenerative hypertrophy of the posterior elements. AP canal diameter 13 mm. Bilateral mild foraminal narrowing. Hyperintense central L2 vertebral body on all sequences consistent with previous augmentation. No marrow edema in the vertebral body or the posterior elements. Retropulsion 3 mm superior L2 endplate stable. L1-L2: Superior L2 endplate retropulsion right of midline with minimal narrowing of the right subarticular recess. Degenerative hypertrophy of the posterior elements. AP canal diameter 10 mm. Mild narrowing of the left foramen mild stenosis right foramen. This is progressed since the prior study. T12 vertebra with decreased height anteriorly and centrally more than posteriorly with hypointense material in the mid and posterior vertebral body consistent with augmentation cement. No marrow edema. This has been introduced since the prior study. 3 mm retropulsion of the inferior endplate contributing to canal narrowing. T12-L1: Disc desiccation with retropulsion narrowing the ventral canal. Mild hypertrophic degeneration of the posterior elements. AP canal diameter 13 mm. Moderate to severe narrowing of the left foramen and severe narrowing right foramen. Conus terminates at T12. Retropulsion of the superior T12 endplate with AP canal diameter 12 mm. Disc desiccation. Trace anterolisthesis. Mild to moderate bilateral foraminal narrowing. Slight progression since the prior study. Circumscribed hyperintense T1 and T2 hemangioma in the T11 vertebral body stable. Left convex L1 - L4 curvature Paravertebral soft tissues paraspinal muscle atrophy. No soft tissue mass. Atrophy left renal cortex.. Distal cord normal signal and caliber. Heterogeneous marrow signal in the remaining vertebral bodies and the posterior elements. Vertebral bodies are not compressed at any level. IMPRESSION: 1. Degenerative scoliosis. Several compression fracture deformities. Degenerative hypertrophy of the posterior flavum ligaments and facet joints (posterior elements). 2. Grade 2 anterolisthesis L5-S1. Bilateral L5 pars spondylolysis. Moderate to severe right foraminal narrowing and severe left foraminal stenosis stable since the prior study. Moderate canal narrowing. 3. New or subacute partial compression fracture L4 vertebral body anterior to posterior. No abnormal marrow edema in the posterior bony elements or pedicles. Mild canal stenosis at the level of the retropulsed superior endplate, new since the prior study. 4. L4-5 disc desiccation. Sclerosis of the right L4 pars interarticularis and lysis of the right L4 pars. Mild narrowing of the left foramen. 5. L3-L4. Mild central canal stenosis associated with retropulsion of the superior L4 endplate from fracture. Moderate to severe left foraminal narrowing. 6. Stable L3 fracture with prior augmentation. 7. L1-L2 disc desiccation. Superior L2 endplate retropulsion narrowing right subarticular recess. Borderline mild central canal stenosis. Mild stenosis of the right foramen has progressed since the prior study. 8. Compression fracture T12 with augmentation since the prior study. Moderate to severe narrowing of the bilateral T12-L1 foramina. This has progressed since the prior study. Electronically signed by: John Richards MD 10/30/2019 2:23 PM [facility]
== END ==
LOC: MRI 14:00
PROVIDERS: ATTEND Anesthesiology Pain Medicine
DX: M41.86 Other forms of scoliosis, lumbar region (principal); S32.040A Wedge compression fracture of fourth lumbar vertebra, initial encounter for closed fracture; S32.030A Wedge compression fracture of third lumbar vertebra, initial encounter for closed fracture; S22.000S Wedge compression fracture of unspecified thoracic vertebra, sequela; M51.26 Other intervertebral disc displacement, lumbar region; M43.17 Spondylolisthesis, lumbosacral region; M47.816 Spondylosis without myelopathy or radiculopathy, lumbar region; M48.07 Spinal stenosis, lumbosacral region; M48.061 Spinal stenosis, lumbar region without neurogenic claudication; M51.36 Other intervertebral disc degeneration, lumbar region; M24.28 Disorder of ligament, vertebrae; M46.96 Unspecified inflammatory spondylopathy, lumbar region

== ENCOUNTER → 2020-03-17 | Outpatient (CLI) | payer MEDICARE, OTHER | LOC: YCHH 03-16 15:02 | PROVIDERS: ATTEND Family Medicine | DX: R79.89 Other specified abnormal findings of blood chemistry (principal) ==

== ENCOUNTER → 2020-03-19 | Outpatient (CLI) | payer MEDICARE, OTHER | LOC: GMAL 14:40 | PROVIDERS: ATTEND Family Medicine | DX: R30.0 Dysuria (principal) ==

== ENCOUNTER → 2020-06-29 | Outpatient (CLI) | payer MEDICARE, OTHER ==
--- NOTE | 2020-06-30 08:00 | MRI ---
EXAM DESCRIPTION: MRI bilateral hips CLINICAL HISTORY: Bilateral hip pain. No known injury COMPARISON: None. TECHNIQUE: Multiplanar, multisequence MR images of the bilateral hips FINDINGS: Small [id number] high-resolution proton density images of the bilateral hips best demonstrate degenerative labral tears anterior superior and superior lateral. No paralabral cyst No full-thickness chondrosis or chronic osteochondral lesion of the femoral head or acetabulum. Diffuse chondral thinning. Physiologic joint fluid without synovitis or intra-articular loose body. No acute tendon or muscle abnormality around the hips. Bilateral chronic common adductor tendinosis/fibrocartilaginous plate avulsion at the pubic symphysis Normal marrow signal. No fracture proximal femora or pelvis Mild osteoarthritis bilateral sacroiliac joints and pubic symphysis. No inflammatory arthritis No pelvic soft tissue mass lesion, adenopathy or pathologic free fluid. A few scattered sigmoid diverticula without diverticulitis. Normal appearance of the urinary bladder. No pelvic visceral abnormality No signal abnormality or mass lesion along the course of the visualized lumbar sacral plexus and proximal sciatic nerves IMPRESSION: Bilateral chronic degenerative labral tears. No acute osteochondral abnormality of the hips No acute muscle or tendon abnormality around the hips. Bilateral chronic incomplete adductor tendon/fibrocartilaginous plate avulsion at the pubic symphysis Electronically signed by: Martir Spencer MD 06/30/2020 7:59 AM CDT
== END ==
LOC: MRI 10:00
PROVIDERS: ATTEND Family Medicine
DX: S76.011A Strain of muscle, fascia and tendon of right hip, initial encounter (principal); S76.012A Strain of muscle, fascia and tendon of left hip, initial encounter; S33.39XA Dislocation of other parts of lumbar spine and pelvis, initial encounter; M47.898 Other spondylosis, sacral and sacrococcygeal region; M67.853 Other specified disorders of tendon, right hip; M67.854 Other specified disorders of tendon, left hip

== ENCOUNTER → 2020-07-22 | Outpatient (CLI) | payer MEDICARE, OTHER | LOC: YCHH 15:15 | PROVIDERS: ATTEND Family Medicine | DX: S81.802A Unspecified open wound, left lower leg, initial encounter (principal); M79.662 Pain in left lower leg ==

== ENCOUNTER → 2020-08-22 | Outpatient (CLI) | payer MEDICARE, OTHER | LOC: NC 10:52 | PROVIDERS: ATTEND Family Medicine | DX: R30.0 Dysuria (principal) ==

== ENCOUNTER 2020-10-16 10:43 | Emergency (ER) | payer MEDICARE, OTHER ==
--- NOTE | 2020-10-16 11:28 | ED.PDOC ---
History of Present Illness - General Chief Complaint: Neuro Symptoms/Deficits Stated Complaint: AMS, lethargic, weak, not eating well, AMS Time Seen by Provider: 10/16/20 10:57 Source: patient Exam Limitations: clinical condition Additional Information: EMS reports that and patient states she fell 1 month ago and hit her head. She was not seen by At that time. Since that time stated that she has been "off". In the last few days she has had diminished appetite diminished activity and seems slow to respond since yesterday. Nausea vomiting syncope not reported. - History of Present Illness Initial Comments: As noted above. The patient admits to a fall 1 month ago but has no recall as to whether or not she hit her head or had a loss of consciousness. She states that the concerns voiced to the EMS By her were exaggerated and not A problem at this time. She does admit to a fall with a laceration of her left elbow at some unknown point in the past. Timing/Duration: unsure Improving Factors: nothing Worsening Factors: nothing Associated Symptoms: denies symptoms Allergies/Adverse Reactions: Allergies Penicillins Allergy (Unknown, Verified 10/16/20 11:34) Omeprazole [From Prilosec] Allergy (Verified 10/16/20 11:34) Pneumococcal Polysaccharides [From Pneumovax] Allergy (Verified 10/16/20 11:34) Sulfamethoxazole w/Trimethoprim [From Bactrim] Allergy (Verified 10/16/20 11:34) Tetanus Toxoid Allergy (Verified 10/16/20 11:34) Home Medications: Ambulatory Orders HYDROcodone 10MG/APAP 325MG [[place] 10/325] 1 ea PO PRN PRN 03/25/13 Furosemide 40 mg PO DAILY 03/17/15 Multiple Vitamin [Multi Vitamin Daily] 1 tab PO DAILY 03/17/15 Spironolactone 100 mg PO DAILY 03/17/15 Tramadol HCl 50 mg PO QID 03/17/15 Ascorbic Acid [Vitamin C] 250 mg PO DAILY 03/29/16 Linaclotide [Linzess] 145 mcg PO DAILY 03/22/17 Allopurinol [Zyloprim] 100 mg PO DAILY 12/17/19 Carbidopa-Levodopa [Carbidopa/Levodopa 25-100 mg] 1 tab PO DAILY 12/17/19 Denosumab [Prolia] 60 mg SC ONCE 12/17/19 Fluticasone Propionate (Nasal) [Fluticasone Propionate] 50 mcg NA DAILY 12/17/19 Gabapentin 300 mg PO TID 12/17/19 Meloxicam 7.5 mg PO DAILY 12/17/19 Methylcellulose (Laxative) [Citrucel] 500 mg PO DAILY 12/17/19 Omeprazole 20 mg PO DAILY 12/17/19 Pantoprazole Tablet [Protonix] 40 mg PO DAILY 12/17/19 Prednisone 5 - 25 mg PO DAILY 12/17/19 Promethazine Tab [Phenergan Tablet] 12.5 mg PO Q4HR PRN 12/17/19 busPIRone HCL [Buspar] 10 mg PO DAILY 12/17/19 Review of Systems - Review of Systems Constitutional: States: no symptoms reported EENTM: States: no symptoms reported Respiratory: States: no symptoms reported Cardiology: States: no symptoms reported Gastrointestinal/Abdominal: States: no symptoms reported Genitourinary: States: no symptoms reported Musculoskeletal: States: other - Fall with injury to left elbow Skin: States: other - Laceration Neurological: States: see HPI Unable to Obtain Due To: condition - Patient appears somewhat confused and has poor recall of recent events. History obtained From patient is not considered reliable. Past Medical History (General) - Patient Medical History Hx Seizures: No Hx Stroke: No Hx Asthma: No Hx of COPD: No Hx Congestive Heart Failure: No Hx Pacemaker: No Hx Hypertension: No Hx Diabetes: No Hx Gastroesophageal Reflux: Yes Hx MRSA: No - Vaccination History Hx Tetanus, Diphtheria Vaccination: No - Allergic Hx Influenza Vaccination: Yes Hx Pneumococcal Vaccination: No - Allergic - Social History Hx Tobacco Use: Yes Hx Alcohol Use: No Hx Substance Use: No Hx Physical Abuse: No Hx Emotional Abuse: No Family Medical History - Family History Mother Family History: Unknown Living Status: Hx Family Asthma: No Hx Family Congestive Heart Failure: Yes Hx Family Hypertension: No Hx Family Stroke: No Hx Cardiac Disease: No Hx Family Diabetes: No Hx Family Cancer: No Physical Exam - Physical Exam General Appearance: Alert, Comfortable Eye Exam: bilateral normal Ears, Nose, Throat: hearing grossly normal, normal ENT inspection Neck: non-tender, full range of motion, supple Respiratory: chest non-tender, lungs clear Cardiovascular/Chest: normal peripheral pulses, regular rate, rhythm Gastrointestinal/Abdominal: normal bowel sounds, non tender, soft Back Exam: normal inspection, no CVA tenderness, no vertebral tenderness Extremity: normal range of motion, other - 4 cm Skin tear Over lateral left elbow without erythema drainage or induration. The elbow is diffusely mildly tender, without swelling or deformity, with full range of motion. Distal neurovascular functions are intact. The left knee has several contusions above and below on the anterior surface. 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 Patient does not seem well-oriented to time. She Appears mildly confused and is slow to answer at times. Skin Exam: normal color, other - Skin of sacral area with 3 cm circular area of partial-thickness skin breakdown consistent with a ruptured vesicle. No drainage surrounding erythema or induration noted. Lymphatic: no adenopathy Progress - Progress Progress: 10/16/20 13:52 Steri-Strips with benzoin applied to skin tear Of the elbow and a Band-Aid with antibiotic ointment applied to the sacral skin lesion. 10/16/20 13:55 Disposition discussed with patient and her [id number]. Consultation for inpatient admission was offered but the patient refused inpatient admission. 10/16/20 14:37 Tetanus shot ordered but not given due to tetanus allergy. Medical decision making elderly female lives at home with her who is brought in for reported changes in behavior and diminished appetite and oral intake. Patient did suffer a minor head injury a month ago but there is no evidence of neurological abnormality or abnormality on CT. The patient is likely dehydrated. She also is likely developing early dementia. Patient has had several falls in the last month. Consultation for Inpatient admission Was offered to the patient but declined. Family member was present and Was in agreement with letting the patient make this decision. Patient needs follow-up with her primary care physician for further care and possible placement if her condition Deteriorates. - Results/Orders Results/Orders: EKG, normal sinus rhythm, 92/min, normal tracing. EXAM DESCRIPTION: Head CLINICAL HISTORY: Recent fall, altered mental status COMPARISON: 22 March 2017 TECHNIQUE: Transaxial images were obtained without intravenous contrast media. Sagittal and coronal reconstruction was performed..This exam was performed according to our departmental dose- optimization program, which includes automated exposure control, adjustment of the mA and/or kV according to patient size and/or use of iterative reconstruction technique. FINDINGS: The exam is mildly limited by patient motion. No evidence of intracranial hemorrhage is observed. No mass lesions or mass effect are observed. Portions of the paranasal sinuses and orbits imaged are normal. The mastoid sinus air cells are clear. Mild prominence of the ventricular system and cortical sulci are observed consistent with atrophy. Mild periventricular white matter decreased attenuation is observed consistent with ischemic demyelination. IMPRESSION: The exam is mildly limited by motion. Senescent changes are observed. No acute parenchymal pathology is detected. Electronically signed by: Umberto Shin MD 10/16/2020 11:46 AM [facility] EXAM DESCRIPTION: Elbow,Left 3 Views CLINICAL HISTORY: Fall COMPARISON: None. TECHNIQUE: 3 views left. FINDINGS: Mild osteopenia is observed. No fracture is detected. No joint effusion is seen. IMPRESSION: No fracturing is detected. Electronically signed by: Umberto Shin MD 10/16/2020 11:44 AM [facility] EXAM DESCRIPTION: Cervical Spine CLINICAL HISTORY: Possible trauma COMPARISON: 22 March 2017 TECHNIQUE: Transaxial images were obtained without intravenous contrast media. Sagittal and coronal reconstruction was performed. This exam was performed according to our departmental dose-optimization program, which includes automated exposure control, adjustment of the mA and/or kV according to patient size and/or use of iterative reconstruction technique. FINDINGS: Mild anterior subluxation of C4 on C5 is observed. Mild posterior subluxation of C5 on C6 is observed. No fracturing is detected.. Craniocervical junction and the cord are unremarkable. No extra spinous abnormality is detected. C2-3: Loss of disc height is observed. No disc bulge or disc herniation is seen. No neural foraminal disease is observed. Facet joint arthrit is is observed. C3-4: A minimal annular bulge is evident. Facet joint arthritis is seen. No neural foraminal disease of significance is observed. C4-5: Mild anterior subluxation of C4 on C5 is observed. No disc bulge or disc herniation is seen. Moderate facet joint arthritis is seen. No neural foraminal disease of significance is observed. C5-6: Marked loss of disc height is observed. Endplate degenerative changes are observed. A posterior disc osteophyte is observed at this level. Bilateral neural foraminal narrowing is observed as result of facet joint arthritis. Mild posterior subluxation of C5 on C6 is observed. C6-7: Mild endplate degenerative changes and facet joint arthritis is observed. No disc bulge or disc herniation is seen. C7-T1: Unremarkable. IMPRESSION: Degenerative changes are observed as described above. No fracturing is detected. No interval changes observed from the previous exam. Electronically signed by: Umberto Shin MD 10/16/2020 1:32 PM [facility] 10/16/20 11:00 EKG STAT 10/16/20 13:53 Dex 5% W/NaCl 0.9% 1000ML [D5 NS 1000ml] 1,000 ml IVS .QD Laboratory Results - last 24 hr 10/16/20 10/16/20 10/16/20 11:25 11:25 11:25 WBC 9.9 RBC 4.80 Hgb 14.1 Hct 42.1 MCV 87.8 MCH 29.3 MCHC 33.4 RDW 14.7 H Plt Count 268 MPV 7.7 Absolute Neuts (auto) 6.50 Absolute Lymphs (auto) 1.90 Absolute Monos (auto) 0.90 H Absolute Eos (auto) 0.30 Absolute Basos (auto) 0.10 Neutrophils % 66.5 Lymphocytes % 19.4 L Monocytes % 9.6 H Eosinophils % 3.3 Basophils % 1.2 PT 10.8 INR 1.09 PTT (SP) 24.1 Sodium 139 Potassium 3.5 L Chloride 97 L Carbon Dioxide 27 Anion Gap 18.5 H BUN 14 Creatinine 1.05 BUN/Creatinine Ratio 13.3 Random Glucose 69 L Serum Osmolality 276.4 Calcium 9.1 Total Bilirubin 1.3 H AST 26 ALT 20 Alkaline Phosphatase 68 Creatine Kinase 17 L CK-MB (CK-2) 1.6 CK-MB (CK-2) % Not Reportable Troponin I < 0.02 Serum Total Protein 5.6 L Albumin 3.3 Globulin 2.3 Albumin/Globulin Ratio 1.4 Urine Color Urine Appearance Urine pH Ur Specific [place] Urine Protein Urine Glucose (UA) Urine Ketones Urine Blood Urine Nitrite Urine Bilirubin Urine Urobilinogen Ur Leukocyte Esterase Urine RBC Urine WBC Ur Epithelial Cells Urine Bacteria 10/16/20 15:30 WBC RBC Hgb Hct MCV MCH MCHC RDW Plt Count MPV Absolute Neuts (auto) Absolute Lymphs (auto) Absolute Monos (auto) Absolute Eos (auto) Absolute Basos (auto) Neutrophils % Lymphocytes % Monocytes % Eosinophils % Basophils % PT INR PTT (SP) Sodium Potassium Chloride Carbon Dioxide Anion Gap BUN Creatinine BUN/Creatinine Ratio Random Glucose Serum Osmolality Calcium Total Bilirubin AST ALT Alkaline Phosphatase Creatine Kinase CK-MB (CK-2) CK-MB (CK-2) % Troponin I Serum Total Protein Albumin Globulin Albumin/Globulin Ratio Urine Color Yellow Urine Appearance Clear Urine pH 7.0 Ur Specific [place] 1.025 Urine Protein Negative Urine Glucose (UA) Negative Urine Ketones Negative Urine Blood Negative Urine Nitrite Negative Urine Bilirubin Negative Urine Urobilinogen 0.2 Ur Leukocyte Esterase Negative Urine RBC 0 Urine WBC 0 Ur Epithelial Cells 0 Urine Bacteria 0 Vital Signs - 24 hr 10/16/20 10/16/20 10/16/20 11:00 11:18 12:49 Temperature 98.8 F Pulse Rate [ 97 H 97 H 99 H Pulse ox] Respiratory 18 18 20 Rate Blood Pressure 106/65 110/71 [R arm] O2 Sat by Pulse 96 95 Oximetry 10/16/20 10/16/20 10/16/20 13:00 14:00 15:00 Temperature Pulse Rate [ 85 82 79 Pulse ox] Respiratory 16 20 20 Rate Blood Pressure 112/67 106/52 129/69 [R arm] O2 Sat by Pulse 95 94 L 97 Oximetry Departure - Departure Clinical Impression: Dehydration, mild, Anorexia, Falls frequently, Skin tear of upper arm without complication Time of Disposition: 16:00 Disposition: Discharge to Home or Self Care Condition: Good Departure Forms: ED Discharge - Pt. Copy, Patient Portal Self Enrollment Instructions: Dehydration, Adult (DC) Diet: resume usual diet Referrals: Umberto Jara III, MD [Primary Care Provider] - 1-2 Weeks Home Medications: Ambulatory Orders HYDROcodone 10MG/APAP 325MG [[place] 10/325] 1 ea PO PRN PRN 03/25/13 Furosemide 40 mg PO DAILY 03/17/15 Multiple Vitamin [Multi Vitamin Daily] 1 tab PO DAILY 03/17/15 Spironolactone 100 mg PO DAILY 03/17/15 Tramadol HCl 50 mg PO QID 03/17/15 Ascorbic Acid [Vitamin C] 250 mg PO DAILY 03/29/16 Linaclotide [Linzess] 145 mcg PO DAILY 03/22/17 Allopurinol [Zyloprim] 100 mg PO DAILY 12/17/19 Carbidopa-Levodopa [Carbidopa/Levodopa 25-100 mg] 1 tab PO DAILY 12/17/19 Denosumab [Prolia] 60 mg SC ONCE 12/17/19 Fluticasone Propionate (Nasal) [Fluticasone Propionate] 50 mcg NA DAILY 12/17/19 Gabapentin 300 mg PO TID 12/17/19 Meloxicam 7.5 mg PO DAILY 12/17/19 Methylcellulose (Laxative) [Citrucel] 500 mg PO DAILY 12/17/19 Omeprazole 20 mg PO DAILY 12/17/19 Pantoprazole Tablet [Protonix] 40 mg PO DAILY 12/17/19 Prednisone 5 - 25 mg PO DAILY 12/17/19 Promethazine Tab [Phenergan Tablet] 12.5 mg PO Q4HR PRN 12/17/19 busPIRone HCL [Buspar] 10 mg PO DAILY 12/17/19 Additional Instructions: Try to eat and drink as much as possible. Relatives should encourage food and drink intake as much as possible. See your doctor as soon as possible about further care for your condition. Walk only with assistance if you are feeling Dizzy and be careful as best you can to prevent falls.
[2020-10-16] MEDS ORDERED: SODIUM CHLORIDE 0.9% 500ML 500 ML IVS ONE (11:43)
--- NOTE | 2020-10-16 11:45 | RAD ---
EXAM DESCRIPTION: Elbow,Left 3 Views CLINICAL HISTORY: Fall COMPARISON: None. TECHNIQUE: 3 views left. FINDINGS: Mild osteopenia is observed. No fracture is detected. No joint effusion is seen. IMPRESSION: No fracturing is detected. Electronically signed by: Umberto Shin MD 10/16/2020 11:44 AM [facility]
--- NOTE | 2020-10-16 11:47 | CT ---
EXAM DESCRIPTION: Head CLINICAL HISTORY: Recent fall, altered mental status COMPARISON: 22 March 2017 TECHNIQUE: Transaxial images were obtained without intravenous contrast media. Sagittal and coronal reconstruction was performed..This exam was performed according to our departmental dose-optimization program, which includes automated exposure control, adjustment of the mA and/or kV according to patient size and/or use of iterative reconstruction technique. FINDINGS: The exam is mildly limited by patient motion. No evidence of intracranial hemorrhage is observed. No mass lesions or mass effect are observed. Portions of the paranasal sinuses and orbits imaged are normal. The mastoid sinus air cells are clear. Mild prominence of the ventricular system and cortical sulci are observed consistent with atrophy. Mild periventricular white matter decreased attenuation is observed consistent with ischemic demyelination. IMPRESSION: The exam is mildly limited by motion. Senescent changes are observed. No acute parenchymal pathology is detected. Electronically signed by: Umberto Shin MD 10/16/2020 11:46 AM [facility]
--- NOTE | 2020-10-16 13:33 | CT ---
EXAM DESCRIPTION: Cervical Spine CLINICAL HISTORY: Possible trauma COMPARISON: 22 March 2017 TECHNIQUE: Transaxial images were obtained without intravenous contrast media. Sagittal and coronal reconstruction was performed. This exam was performed according to our departmental dose-optimization program, which includes automated exposure control, adjustment of the mA and/or kV according to patient size and/or use of iterative reconstruction technique. FINDINGS: Mild anterior subluxation of C4 on C5 is observed. Mild posterior subluxation of C5 on C6 is observed. No fracturing is detected.. Craniocervical junction and the cord are unremarkable. No extra spinous abnormality is detected. C2-3: Loss of disc height is observed. No disc bulge or disc herniation is seen. No neural foraminal disease is observed. Facet joint arthritis is observed. C3-4: A minimal annular bulge is evident. Facet joint arthritis is seen. No neural foraminal disease of significance is observed. C4-5: Mild anterior subluxation of C4 on C5 is observed. No disc bulge or disc herniation is seen. Moderate facet joint arthritis is seen. No neural foraminal disease of significance is observed. C5-6: Marked loss of disc height is observed. Endplate degenerative changes are observed. A posterior disc osteophyte is observed at this level. Bilateral neural foraminal narrowing is observed as result of facet joint arthritis. Mild posterior subluxation of C5 on C6 is observed. C6-7: Mild endplate degenerative changes and facet joint arthritis is observed. No disc bulge or disc herniation is seen. C7-T1: Unremarkable. IMPRESSION: Degenerative changes are observed as described above. No fracturing is detected. No interval changes observed from the previous exam. Electronically signed by: Umberto Shin MD 10/16/2020 1:32 PM [facility]
[2020-10-16] MEDS ORDERED: DEX 5% W/NACL 0.9% 1000ML 1,000 ML IVS PRN (13:53)
[2020-10-16 16:24] VITALS: BP 108/54; TEMP 98.1; O2SAT 96
== END 2020-10-16 16:23 | disposition home or self-care (01) ==
LOC: ER 10:43
DX: E86.0 Dehydration (principal); R63.0 Anorexia; R29.6 Repeated falls; S51.002A Unspecified open wound of left elbow, initial encounter; M47.812 Spondylosis without myelopathy or radiculopathy, cervical region; L98.9 Disorder of the skin and subcutaneous tissue, unspecified; K21.9 Gastro-esophageal reflux disease without esophagitis; Z20.822 Contact with and (suspected) exposure to COVID-19; Z87.891 Personal history of nicotine dependence; Z88.7 Allergy status to serum and vaccine; Z79.899 Other long term (current) drug therapy; Z88.1 Allergy status to other antibiotic agents; Z88.8 Allergy status to other drugs, medicaments and biological substances; Z88.2 Allergy status to sulfonamides; W19.XXXA Unspecified fall, initial encounter; Y92.9 Unspecified place or not applicable
CPT/HCPCS: 36415; 70450; 72125; 73080; 80053; 81001; 82550; 82553; 84484; 85025; 85610; 85730; 87635; 93005; J7040; J7799

== ENCOUNTER 2020-10-31 11:34 | Inpatient (IN) | payer MEDICARE, OTHER ==
[2020-10-31] MEDS ORDERED: SODIUM CHLORIDE 0.9% (FLUSH) 10 ML SYG IV PRN ×2 (11:37→19:07)
--- NOTE | 2020-10-31 11:38 | ED.PDOC ---
History of Present Illness - General Time Seen by Provider: 10/31/20 11:35 Source: patient, family - History of Present Illness Initial Comments: 79 yo female with PMH of dementia who is bib EMS from home for cc of fall and BL knee pain. History from patient is very limited due to significant dementia. EMS reports that her was trying to help her ambulate to the restroom when she suddenly became weak and fell to the floor landing on bilateral anterior knees. No loss of consciousness, head injury, neck injury reported. was unable to get her up so EMS was called. She was reported stable in route but noted to have a large laceration to the left knee and a small laceration to the right knee. In the ED patient reports constant severe pain to bilateral knees without radiation, worse with palpation or movement, no medication taken for relief. Denies any other acute injuries or pain or symptoms at this time. Patient was also recently seen in the ED 2 weeks ago for weakness and a fall at that time. PCP is Dr. Jara. Allergies/Adverse Reactions: Allergies Penicillins Allergy (Unknown, Verified 10/16/20 11:34) Omeprazole [From Prilosec] Allergy (Verified 10/16/20 11:34) Pneumococcal Polysaccharides [From Pneumovax] Allergy (Verified 10/16/20 11:34) Sulfamethoxazole w/Trimethoprim [From Bactrim] Allergy (Verified 10/16/20 11:34) Tetanus Toxoid Allergy (Verified 10/16/20 11:34) Home Medications: Ambulatory Orders HYDROcodone 10MG/APAP 325MG [Baxter 10/325] 1 ea PO PRN PRN 03/25/13 Furosemide 20 mg PO MOWEFR 03/17/15 Multiple Vitamin [Multi Vitamin Daily] 1 tab PO DAILY 03/17/15 Spironolactone 100 mg PO DAILY 03/17/15 Tramadol HCl 50 mg PO QID PRN 03/17/15 Linaclotide [Linzess] 145 mcg PO DAILY 03/22/17 Allopurinol [Zyloprim] 100 mg PO DAILY 12/17/19 Carbidopa-Levodopa [Carbidopa/Levodopa 25-100 mg] 1 tab PO BEDTIME 12/17/19 Denosumab [Prolia] 60 mg SC [id number] 12/17/19 Fluticasone Propionate (Nasal) [Fluticasone Propionate] 50 mcg NA DAILY 12/17/19 Gabapentin 300 mg PO BID 12/17/19 Meloxicam 7.5 mg PO DAILY 12/17/19 Omeprazole 20 mg PO DAILY 12/17/19 Pantoprazole Tablet [Protonix] 40 mg PO DAILY 12/17/19 Prednisone 5 - 25 mg PO DAILY 12/17/19 Promethazine Tab [Phenergan Tablet] 12.5 mg PO Q4HR PRN 12/17/19 busPIRone HCL [Buspar] 10 mg PO BID 12/17/19 Citalopram Hydrobromide [CeleXA] 20 mg PO DAILY 10/31/20 Furosemide [Lasix] 40 mg PO SUTUTHSA 10/31/20 Methylcellulose (Laxative) [Citrucel] 1,000 mg PO DAILY 10/31/20 Polyethylene Glycol 3350 [Miralax] 17 gm PO DAILY 10/31/20 Turmeric (Curcuma Longa) [Turmeric Curcumin] 500 mg PO BEDTIME 10/31/20 Review of Systems - Review of Systems Review of Systems: 10/31/20 11:50 as per HPI All other Systems: Reviewed and Negative Past Medical History (General) - Patient Medical History Hx Seizures: No Hx Stroke: No Hx Dementia: No Hx Asthma: No Hx of COPD: No Hx Cardiac Disorders: No Hx Congestive Heart Failure: No Hx Pacemaker: No Hx Hypertension: No Hx Diabetes: No Hx Gastroesophageal Reflux: Yes Hx MRSA: No - Vaccination History Hx Tetanus, Diphtheria Vaccination: No - Allergic Hx Influenza Vaccination: Yes Hx Pneumococcal Vaccination: No - Allergic - Social History Hx Tobacco Use: Yes Hx Alcohol Use: No Hx Substance Use: No Hx Substance Use Treatment: No Hx Depression: No Hx Physical Abuse: No Hx Emotional Abuse: No - Female History Patient : No Family Medical History - Family History Mother Family History: Unknown Living Status: Hx Family Asthma: No Hx Family Congestive Heart Failure: Yes Hx Family Hypertension: No Hx Family Stroke: No Hx Cardiac Disease: No Hx Family Diabetes: No Hx Family Cancer: No Physical Exam - Physical Exam General Appearance: Alert, Comfortable, No apparent distress, Unkempt, Other - appears thin Eye Exam: bilateral normal Ears, Nose, Throat: hearing grossly normal, other - dry appearing oral mucosa Neck: non-tender, full range of motion, supple, normal inspection Respiratory: lungs clear, normal breath sounds, no respiratory distress, no accessory muscle use Cardiovascular/Chest: normal peripheral pulses, no edema, no gallop, no JVD, no murmur, tachycardia Peripheral Pulses: radial,right: 2+, radial,left: 2+ Gastrointestinal/Abdominal: soft, no organomegaly, tenderness - mild generalized ttp w/o masses Back Exam: normal inspection, no CVA tenderness, no vertebral tenderness Extremity: other - Left knee with large approx 14 cm laceration transversely through anterior knee through skin & subcut tissue, R knee with approx 3 cm superficial laceration. BL knees with marked ttp w/o bruising/swelling/deformity. 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 To Right knee: approx 4 cm flap-like laceration, superficial. Sacral decubitus ulcer noted Progress - Progress Progress: 10/31/20 11:53 Ground-level fall, bilateral knee pain -Fall appears to be due to generalized weakness. Consider infectious etiology, sepsis, UTI, other. Consider marked dehydration, metabolic derangement, arrhythmia, ACS, other -Consider injuries: Knee fractures/contusions, hip/pelvic fractures, other injuries. -Obtain blood work, cardiac work-up, urinalysis, x-ray imaging of the pelvis and bilateral knees and chest -Patient does have tachycardia and borderline hypotension upon arrival. Place PIV and will give 1 L NS bolus. 10/31/20 16:55 -All x-ray imaging reviewed and no acute processes noted. Radiology made note of possible gas within the left knee joint space. I did telephone consultation with Dr. Jason regarding this issue and he feels highly unlikely of capsular rupture. I did attempt to inject sterile saline into the left knee joint and d id not notice any leakage prior to suturing the laceration. -Lab work is consistent with moderate to severe dehydration with associated acute kidney injury. Serum WBC is moderately elevated to 14,900 but at this point there is no clear evidence of bacterial infection or sepsis. I suspect that the leukocytosis is likely due to dehydration and recent fall. K is 2.7 (replenished with KCl 40 mEq PO in the ED). -I spoke with Dara Cross, hospitalist, who accepts the patient for further observation in the hospital for dehydration, acute kidney injury. Pt will likely need rehab s/p ground level fall. Family is concerned about rehab and placement for patient as well. Jules Muir MD Billing #[id number] 10/31/20 11:37 Sodium Chloride 0.9% (Flush) [Saline Flush Syringe] 10 ml IV PRN PRN Chest,1 View [RAD] Stat URINALYSIS Stat 10/31/20 11:45 EKG STAT 11/01/20 09:00 Pulse Ox Daily Laboratory Results - last 24 hr 10/31/20 10/31/20 10/31/20 12:22 12:22 12:22 WBC 14.9 H RBC 5.35 Hgb 15.2 Hct 47.0 MCV 87.8 MCH 28.4 MCHC 32.4 L RDW 14.7 H Plt Count 411 H MPV 8.4 Absolute Neuts (auto) 10.10 H Absolute Lymphs (auto) 3.00 Absolute Monos (auto) 1.10 H Absolute Eos (auto) 0.40 Absolute Basos (auto) 0.20 H Neutrophils % 67.9 Lymphocytes % 20.4 Monocytes % 7.5 Eosinophils % 2.9 Basophils % 1.3 Sodium 140 Potassium 2.7 L Chloride 102 Carbon Dioxide 22 Anion Gap 18.7 H BUN 28 H Creatinine 1.57 H BUN/Creatinine Ratio 17.8 Random Glucose 95 Serum Osmolality 284.7 Lactic Acid Calcium 8.0 L Total Bilirubin 0.9 AST 27 ALT 19 Alkaline Phosphatase 75 Troponin I < 0.02 B-Natriuretic Peptide 29.1 Serum Total Protein 5.0 L Albumin 2.9 L Globulin 2.1 L Albumin/Globulin Ratio 1.4 10/31/20 12:22 WBC RBC Hgb Hct MCV MCH MCHC RDW Plt Count MPV Absolute Neuts (auto) Absolute Lymphs (auto) Absolute Monos (auto) Absolute Eos (auto) Absolute Basos (auto) Neutrophils % Lymphocytes % Monocytes % Eosinophils % Basophils % Sodium Potassium Chloride Carbon Dioxide Anion Gap BUN Creatinine BUN/Creatinine Ratio Random Glucose Serum Osmolality Lactic Acid 1.4 Calcium Total Bilirubin AST ALT Alkaline Phosphatase Troponin I B-Natriuretic Peptide Serum Total Protein Albumin Globulin Albumin/Globulin Ratio - EKG/XRAY/CT EKG: Sinus, Tachy - HR 120, no ST elevs noted, q waves noted anteroseptal leads likely indicative of prior infarct, axis normal, intervals normal, compared to 10/16/20 EKG sinus tach is new but otherwise unchanged XRAY: chest - no acute processes per my read Procedures - Laceration/Wound Repair Left Knee Wound Length (cm): 14 Wound's Depth, Shape: irregular, flap Wound Explored: clean Irrigated w/ Saline (cc's): 500 - mixed with betadine, pressure irrigation Betadine Prep?: Yes Anesthesia: Lidocaine w/ Epi - 10 cc, 1% Volume Anesthetic (cc's): 10 Wound Debrided: minimal Wound Repaired With: sutures Suture Size/Type: 3:0 - For middle sutures, suturing over steri-strips was done given the very thin/fragile skin in the area, prolene Number of Sutures: 17 Layer Closure?: No Sterile Dressing Applied?: Yes Progress: The smaller 4 cm laceration inferior to the larger laceration was repaired with Dermabond w/o complication. Departure - Departure Clinical Impression: Acute kidney injury, Dehydration, Acute delirium Laceration of knee, left Qualifiers: Encounter type: initial encounter Qualified Code(s): S81.012A - Laceration without foreign body, left knee, initial encounter Laceration of right knee Qualifiers: Encounter type: initial encounter Qualified Code(s): S81.011A - Laceration without foreign body, right knee, initial encounter Dementia Qualifiers: Dementia type: unspecified type Dementia behavioral disturbance: with behavioral disturbance Qualified Code(s): F03.91 - Unspecified dementia with behavioral disturbance Time of Disposition: 16:50 Disposition: Admit Patient Condition: Fair Diet: resume usual diet Referrals: Umberto Jara III, MD [Primary Care Provider] - 1-2 Weeks Home Medications: Ambulatory Orders HYDROcodone 10MG/APAP 325MG [Baxter 10/325] 1 ea PO PRN PRN 03/25/13 Furosemide 20 mg PO MOWEFR 03/17/15 Multiple Vitamin [Multi Vitamin Daily] 1 tab PO DAILY 03/17/15 Spironolactone 100 mg PO DAILY 03/17/15 Tramadol HCl 50 mg PO QID PRN 03/17/15 Linaclotide [Linzess] 145 mcg PO DAILY 03/22/17 Allopurinol [Zyloprim] 100 mg PO DAILY 12/17/19 Carbidopa-Levodopa [Carbidopa/Levodopa 25-100 mg] 1 tab PO BEDTIME 12/17/19 Denosumab [Prolia] 60 mg SC [id number] 12/17/19 Fluticasone Propionate (Nasal) [Fluticasone Propionate] 50 mcg NA DAILY 12/17/19 Gabapentin 300 mg PO BID 12/17/19 Meloxicam 7.5 mg PO DAILY 12/17/19 Omeprazole 20 mg PO DAILY 12/17/19 Pantoprazole Tablet [Protonix] 40 mg PO DAILY 12/17/19 Prednisone 5 - 25 mg PO DAILY 12/17/19 Promethazine Tab [Phenergan Tablet] 12.5 mg PO Q4HR PRN 12/17/19 busPIRone HCL [Buspar] 10 mg PO BID 12/17/19 Citalopram Hydrobromide [CeleXA] 20 mg PO DAILY 10/31/20 Furosemide [Lasix] 40 mg PO SUTUTHSA 10/31/20 Methylcellulose (Laxative) [Citrucel] 1,000 mg PO DAILY 10/31/20 Polyethylene Glycol 3350 [Miralax] 17 gm PO DAILY 10/31/20 Turmeric (Curcuma Longa) [Turmeric Curcumin] 500 mg PO BEDTIME 10/31/20 Decision To Admit - Decistion To Admit Decision to Admit Reason: Admit from ER Decision to Admit Date: 10/31/20 Decision to Admit Time: 16:52
[2020-10-31] MEDS ORDERED: SODIUM CHLORIDE 0.9% 1000ML 1,000 ML IVS ONE ×2 (12:09→12:59)
[2020-10-31] MEDS ORDERED: POTASSIUM CHLORIDE 20 MEQ TAB PO ONE (13:01)
--- NOTE | 2020-10-31 13:08 | RAD ---
EXAM: XR Left Knee, 1 or 2 Views CLINICAL HISTORY: GLF, BL knee pain TECHNIQUE: AP and crosstable lateral views left knee obtained. COMPARISON: No relevant prior studies available. FINDINGS: Bones/joints: There is gas in the joint. No acute fracture. No dislocation. Soft tissues: No abnormality noted. Vasculature: Atherosclerotic calcifications noted minimally. IMPRESSION: There is gas in the soft tissues and the joint. Correlate with physical exam to assess penetrating wound. No fracture noted. Electronically signed by: Kristen Ang MD 10/31/2020 1:06 PM [facility]
--- NOTE | 2020-10-31 13:09 | RAD ---
EXAM: XR Right Knee, 3 Views CLINICAL HISTORY: GLF, BL knee pain TECHNIQUE: AP, sunrise and crosstable lateral views right knee obtained. COMPARISON: No relevant prior studies available. FINDINGS: Bones/joints: No abnormality noted. No acute fracture. No dislocation. Soft tissues: No abnormality noted. Vasculature: Medial bandaging material noted. There is mild atherosclerotic calcification. IMPRESSION: Chronic changes as above. No acute disease. Electronically signed by: Kristen Ang MD 10/31/2020 1:07 PM [facility]
--- NOTE | 2020-10-31 13:10 | RAD ---
EXAM: XR Pelvis, 1 View CLINICAL HISTORY: GLF, denies hip/pelvic pain TECHNIQUE: Frontal view of the pelvis. COMPARISON: No relevant prior studies available. FINDINGS: Limitations: None. Bones/joints: No acute change noted. Soft tissues: No abnormality noted. No concerning radiopaque foreign body noted. Vasculature: Atherosclerotic calcification noted. Gastrointestinal tract: No abnormality noted. IMPRESSION: No acute findings in the pelvis. Electronically signed by: Kristen Ang MD 10/31/2020 1:09 PM [facility]
[2020-10-31] MEDS ORDERED: LIDOCAINE 1% W/ EPINEPHRINE 20 ML VIAL INJ ONE (14:13)
[2020-10-31] MEDS ORDERED: ONDANSETRON INJ 4 MG/2 ML VIAL ONE (15:31)
[2020-10-31] MEDS ORDERED: MORPHINE SULFATE INJ 10 MG/ML VIAL ONE (15:31)
[2020-10-31] MEDS ORDERED: MORPHINE SULFATE INJ 10 MG/ML VIAL IV ONE (15:34)
[2020-10-31] MEDS ORDERED: ONDANSETRON INJ 4 MG/2 ML VIAL IV ONE (15:34)
[2020-10-31] MEDS ORDERED: POVIDONE IODINE 10 % 15 ML UD TOP ONE (15:37)
[2020-10-31] MEDS ORDERED: NEOMYCIN-BACITRACIN-POLYMYXIN 0.9 GM UD TOP ONE (16:38)
--- NOTE | 2020-10-31 17:18 | HP ---
SUPERVISING PHYSICIAN: Martir Rao MD CHIEF COMPLAINT: Weakness, confusion and fall at home. HISTORY OF PRESENT ILLNESS: This is a 79 year-old female patient who presented to the Emergency Room after a fall at home with bilateral knee pain. Her was actually assisting her to the bathroom and they both tumbled to the floor. There was no loss of consciousness, head injury or neck injury, although the was unable to get her up so he called EMS. She did have a 14 cm laceration on her left knee. In the Emergency Room, her initial vital signs were temperature 98.5 with a heart rate of 126, blood pressure was slightly low at 96/57, respiratory rate 20, oxygen saturation 92%. Lab was drawn and her WBCs were 14,900 with a hemoglobin of 15.2, hematocrit 47. Platelet count 411,000. Sodium 140, potassium 2.7, chloride 102. BUN 28, creatinine 1.57, baseline creatinine is about 0.9. Glucose 95, lactic acid 1.4, calcium 8, magnesium 1.5. Serum total protein 5, albumin 2.9. Urinalysis was unremarkable. Chest x-ray showed opacification of the left lung base which may reflect atelectasis. Covid swab was negative. Pelvis x-ray showed no acute findings in the pelvis. Her left knee x-ray shows there is gas in the soft tissues of the joint, correlate with physical examination to assess penetrating wound. No fracture noted. Her right knee x-ray shows chronic changes with no acute disease, no acute fracture. Her left knee was stitched and bandaged. She was very confused. She was given 2 liters of fluids as well as some potassium. Her blood pressure normalized and she was admitted to the hospital in stable condition. PAST MEDICAL HISTORY: 1. Hyperlipidemia. 2. Chronic obstructive pulmonary disease. 3. H. pylori infection in 2013. 4. Rheumatoid arthritis. 5. Osteoporosis. 6. Constipation. 7. Parkinson's disease. PAST SURGICAL HISTORY: 1. Endometrial ablation . 2. Laparoscopic cholecystectomy. 3. L2 kyphoplasty. HOME MEDICATIONS: 1. Prolia. 2. Fluticasone nasal 3. Furosemide. 4. Multivitamin. 5. Omeprazole. 6. Pantoprazole. 7. Prednisone. 8. Promethazine. 9. Spironolactone. 10. Tumeric. 11. Allopurinol. 12. Buspirone. 13. Carbidopa/ levodopa. 14. Citalopram. 15. Hydrocodone. 16. Linzess. 17. Meloxicam. 18. Miralax. 19. Citrucel. 20. Tramadol. ALLERGIES: PENICILLINS, PNEUMOCOCCAL POLYSACCHARIDES, SULFA AND TETANUS. There was a mention of Omeprazole but the patient is present Omeprazole as a home medication. SOCIAL HISTORY: She is , she lives at home in [place]. She quit smoking in 1997 and she had a significant history of cigarette smoking. She drinks alcohol on a social basis. There is no history of illicit drug use. REVIEW OF SYSTEMS: Unable to complete due to patient's mental status. PHYSICAL EXAMINATION: VITAL SIGNS: Temperature 97.1, heart rate 92, blood pressure 118/67, respiratory rate 18, oxygen saturation 92% on room air. GENERAL: This is a 79 year-old, thin female who is lying in her hospital bed. At this time, she is in no acute distress. HEENT: Normocephalic and atraumatic. Pupils are equal and reactive. Oropharynx is clear. NECK: Supple, full range of motion. CHEST: Essentially clear to auscultation bilaterally. CARDIOVASCULAR: Regular rate and rhythm. ABDOMEN: Soft, nondistended, non-tender. Bowel sounds are positive. EXTREMITIES: She has a bandage to her left knee with a reported 14 cm laceration that has been stitched. Bilateral pedal pulses are palpable at +2. NEUROLOGIC: She is awake, alert, and oriented to person only. SKIN: [place], warm and dry. Again, there was a reported bruise around that laceration to the left knee but it is bandaged and the dressing is clean and dry. FOLLOWUP LABORATORY: WBCs 12,700, hemoglobin 13.8, hematocrit 43.4. She has a left shift on her differential. Electrolytes show sodium 142, potassium 4.2, chloride 104, BUN 29, creatinine 1.49, magnesium 2.7. Blood cultures are pending. RADIOLOGY: Chest x-ray shows suspect small bilateral pleural effusions with adjacent subsegmental cyst or possible infiltrate, overall similar to prior. ASSESSMENT: 1. Acute renal failure with an admitting BUN of 1.57. Her baseline is about 0.9 to 0.1. 2. Hypokalemia. 3. Severe dehydration. 4. Extreme weakness with poor care deficit with multiple frequent falls. 5. Rheumatoid arthritis with chronic pain, on narcotics for pain relief. 6. Chronic obstructive pulmonary disease without acute exacerbation. 7. Dementia. 8. Parkinson's. 9. Chronic constipation. PLAN: The patient was admitted to the hospital last night and given judicious fluids overnight. She was also given magnesium and potassium supplementation. I have ordered physical therapy for safety as well as to evaluate and treat. I have also consulted Lead Sharepoint Developer, maybe Alisia Null, ENERGY CONSERVATION ENGINEER can assist with discharge planning. Her common law was very adamant that she not go to a half-way, although his family is concerned for his safety as they have both been falling and some of his concerns were that his previous at one of the half-way so maybe he would be open to going to the other half-way with physical therapy and rehabilitation. I am not sure she would qualify for inpatient rehabilitation at [facility], that can also be explored. For patient's safety and due to multiple comorbidities, she will need help after discharge. She also has a Bagley catheter and that will be discontinued when clinically appropriate.It is also to be noted that the last time she was in the hospital, home health was ordered but her has not allowed them to come in the last few weeks. I have ordered lab for in the morning and although she does have an elevated white count, I think this is an inflammatory response due to the falls. I will monitor her cultures closely. I do not see any overt sign of infection. #[id number] [facility]
[2020-10-31] MEDS ORDERED: ONDANSETRON INJ 4 MG/2 ML VIAL IV PRN (19:07)
[2020-10-31] MEDS ORDERED: KCL 20MEQ/0.45% NS 1,000 ML IVS ONE (19:12)
[2020-10-31] MEDS ORDERED: traMADol HCL 50 MG TAB PO PRN (19:14)
[2020-10-31] MEDS ORDERED: MAGNESIUM SULFATE PREMIX 2GM 2 GM in PREMIX BAG 1 BAG IVPB ONE (19:27)
[2020-10-31] MEDS ORDERED: IV SET AND CAP CHANGE INJ INJ SCH (19:30)
[2020-10-31] MEDS ORDERED: MAGNESIUM SULFATE PREMIX 2GM 50 ML IVPB ONE (20:03)
[2020-10-31] MEDS: busPIRone HCL 5 MG TAB PO SCH (20:08)
[2020-10-31] MEDS: HYDROcodone 10MG/APAP 325MG 1 EA TAB PO PRN (20:08)
[2020-10-31] MEDS: SODIUM CHLORIDE 0.9% (FLUSH) 10 ML SYG IV SCH (20:30)
[2020-11-01] MEDS ORDERED: methylPREDNISolone SODIUM SUC 40 MG/ML VIAL ONE (01:03)
[2020-11-01] MEDS: PANTOPRAZOLE SODIUM IV 40 MG VIAL IV SCH (05:49)
[2020-11-01] MEDS: MELOXICAM 7.5 MG TAB PO SCH (08:23)
[2020-11-01] MEDS: busPIRone HCL 5 MG TAB PO SCH ×2 (08:23→21:04)
[2020-11-01] MEDS: CITALOPRAM HBR 20 MG TAB PO SCH (08:23)
[2020-11-01] MEDS: ALLOPURINOL 100 MG TAB PO SCH (08:23)
[2020-11-01] MEDS: NON-FORMULARY MEDICATION 1 EA MIS (Linaclotide [Linzess] 145 MCG) PO SCH (09:03)
[2020-11-01] MEDS: POLYETHYLENE GLYCOL 3350 17 GM PCKT PO SCH (09:03)
[2020-11-01] MEDS: METHYLCELLULOSE 1000 MG PO SCH (09:03)
--- NOTE | 2020-11-01 09:29 | RAD ---
TECHNIQUE: Chest,1 View Chest radiograph, AP 1 view. HISTORY: MAIN atelectasis; leukocytosis COMPARISON: Chest x-ray October 31, 2020. FINDINGS: Lungs/Pleura: No appreciable pneumothorax. Blunted bilateral costophrenic angles with adjacent ill-defined opacities. No large consolidation. Mediastinum, Mallory: Aortic calcifications. Heart: Cardiac silhouette is within normal limits. Bones: No suspicious osseous lesions. Vertebral plasties noted. Soft Tissues: Unremarkable. Other: None. IMPRESSION: * Suspect small bilateral pleural effusions with adjacent subsegmental cysts or possible infiltrates. * Overall similar to prior. Electronically signed by: Michele Vickers 11/01/2020 9:27 AM [facility]
[2020-11-01] MEDS: SODIUM CHLORIDE 0.9% (FLUSH) 10 ML SYG IV SCH ×2 (10:28→21:07)
[2020-11-01] MEDS ORDERED: busPIRone HCL 5 MG TAB ONE (19:04)
[2020-11-01] MEDS ORDERED: SODIUM CHLORIDE 0.9% (FLUSH) 10 ML SYG ONE (19:05)
[2020-11-01] MEDS ORDERED: HYDROcodone 10MG/APAP 325MG 1 EA TAB ONE (19:06)
[2020-11-01] MEDS: HYDROcodone 10MG/APAP 325MG 1 EA TAB PO PRN (21:05)
[2020-11-02] MEDS ORDERED: PANTOPRAZOLE SODIUM IV 40 MG VIAL ONE (04:39)
[2020-11-02] MEDS: PANTOPRAZOLE SODIUM IV 40 MG VIAL IV SCH (05:48)
[2020-11-02] MEDS ORDERED: busPIRone HCL 5 MG TAB ONE (07:19)
[2020-11-02] MEDS ORDERED: CITALOPRAM HBR 20 MG TAB ONE (07:20)
[2020-11-02] MEDS ORDERED: MELOXICAM 7.5 MG TAB ONE (07:20)
[2020-11-02] MEDS ORDERED: ALLOPURINOL 100 MG TAB ONE (07:20)
[2020-11-02] MEDS: busPIRone HCL 5 MG TAB PO SCH ×2 (08:09→20:39)
[2020-11-02] MEDS: MELOXICAM 7.5 MG TAB PO SCH (08:09)
[2020-11-02] MEDS: POLYETHYLENE GLYCOL 3350 17 GM PCKT PO SCH (08:10)
[2020-11-02] MEDS: SODIUM CHLORIDE 0.9% (FLUSH) 10 ML SYG IV SCH ×2 (08:10→20:39)
[2020-11-02] MEDS: NON-FORMULARY MEDICATION 1 EA MIS (Linaclotide [Linzess] 145 MCG) PO SCH (08:10)
[2020-11-02] MEDS: ALLOPURINOL 100 MG TAB PO SCH (08:10)
[2020-11-02] MEDS: CITALOPRAM HBR 20 MG TAB PO SCH (08:10)
[2020-11-02] MEDS: METHYLCELLULOSE 1000 MG PO SCH (08:11)
[2020-11-02] MEDS ORDERED: ENOXAPARIN SODIUM 30 MG/0.3 ML SYG SUBCU SCH (10:30)
[2020-11-02] MEDS: HYDROcodone 10MG/APAP 325MG 1 EA TAB PO PRN (20:38)
[2020-11-02] MEDS ORDERED: CARBIDOPA/LEVODOPA 25/100 1 TAB PO SCH (21:00)
[2020-11-03 00:41] VITALS: TEMP 98
[2020-11-03] MEDS ORDERED: PANTOPRAZOLE SODIUM TAB 40 MG PO ONE (03:57)
[2020-11-03 04:33] VITALS: BP 126/87; O2SAT 94
[2020-11-03] MEDS ORDERED: PANTOPRAZOLE SODIUM TAB 40 MG PO SCH (06:30)
--- NOTE | 2020-11-03 08:12 | PN ---
SUPERVISING PHYSICIAN: Aguila Wilburn MD DATE: 11/02/20 SUBJECTIVE: The patient is confused. She has been yelling out with difficulty re-orienting. According to nursing, her neuro status has not changed much and she can answer some simple questions occasionally. She does get confused easily. OBJECTIVE: VITAL SIGNS: Temperature 97.5, heart rate 73, blood pressure 117/84, respiratory rate 16, O2 saturation 93% on room air. RESPIRATORY: Essentially clear to auscultation bilaterally. CARDIAC: Regular rate and rhythm. NEUROLOGIC: She is awake, she yells out. She has difficulty answering simple questions. LABORATORY: WBCs 12,900, hemoglobin 12.3, hematocrit 37.6. Electrolytes are basically within normal limits with the exception of her calcium is slightly low at 8.3. MICROBIOLOGY: Preliminary blood cultures show no growth after 24 hours. ASSESSMENT: 1. Acute renal failure with an admitting BUN of 1.57. Her baseline is about 0.9 to 0.1. 2. Hypokalemia. 3. Severe dehydration. 4. Extreme weakness with poor care deficit with multiple frequent falls. 5. Rheumatoid arthritis with chronic pain, on narcotics for pain relief. 6. Chronic obstructive pulmonary disease without acute exacerbation. 7. Dementia. 8. Parkinson's. 9. Chronic constipation. PLAN: We will continue present supportive care and treat as indicated. The patient's and family members have decided that the patient could be evaluated by [facility] and she has been accepted. She hopefully can be discharged to that facility tomorrow. I have ordered lab for in the morning. #[id number] [facility]
--- NOTE | 2020-11-04 13:39 | DS ---
SUPERVISING PHYSICIAN: Aguila Wilburn MD ADMISSION DIAGNOSIS: 1. Acute renal failure with an admitting BUN of 1.57. Her baseline is about 0.9 to 0.1. 2. Hypokalemia. 3. Severe dehydration. 4. Extreme weakness with poor care deficit with multiple frequent falls. 5. Rheumatoid arthritis with chronic pain, on narcotics for pain relief. 6. Chronic obstructive pulmonary disease without acute exacerbation. 7. Dementia. 8. Parkinson's. 9. Chronic constipation. DISCHARGE DIAGNOSIS: 1. Acute renal failure, resolving with fluids, back to baseline creatinine levels. 2. Electrolyte imbalance in the form of hypokalemia, resolved. 3. Severe dehydration, improved with fluids. 4. Extreme weakness with poor care deficit with multiple frequent falls with the being admitted to a [facility] facility. 5. Rheumatoid arthritis with chronic pain, on narcotics for pain relief. 6. Chronic obstructive pulmonary disease without acute exacerbation. 7. Dementia. 8. Parkinson's. 9. Chronic constipation. REASON FOR HOSPITALIZATION: This is a 79 year-old female patient who presented to the Emergency Room after a fall at home with bilateral knee pain. Her was actually assisting her to the bathroom and they both tumbled to the floor. There was no loss of consciousness, head injury or neck injury, although the was unable to get her up so he called EMS. She did have a 14 cm laceration on her left knee. In the Emergency Room, her initial vital signs were temperature 98.5 with a heart rate of 126, blood pressure was slightly low at 96/57, respiratory rate 20, oxygen saturation 92%. Lab was drawn and her WBCs were 14,900 with a hemoglobin of 15.2, hematocrit 47. Platelet count 411,000. Sodium 140, potassium 2.7, chloride 102. BUN 28, creatinine 1.57, baseline creatinine is about 0.9. Glucose 95, lactic acid 1.4, calcium 8, magnesium 1.5. Serum total protein 5, albumin 2.9. Urinalysis was unremarkable. Chest x-ray showed opacification of the left lung base which may reflect atelectasis. COVID swab was negative. Pelvis x-ray showed no acute findings in the pelvis. Her left knee x-ray shows there is gas in the soft tissues of the joint, correlate with physical examination to assess penetrating wound. No fracture noted. Her right knee x-ray shows chronic changes with no acute disease, no acute fracture. Her left knee was stitched and bandaged. She was very confused. She was given 2 liters of fluids as well as some potassium. Her blood pressure normalized and she was admitted to the hospital in stable condition. LABORATORY: Chemistries on discharge showed normal electrolytes, potassium 4.0, creatinine 0.9. Calcium and magnesium both normal. Liver functions all within normal limits. White count 13,100 with a slight left shift. Troponins were less than 0.02. Urinalysis showed dark yellow urine, otherwise unremarkable. MICROBIOLOGY: Nasal swab for COVID was negative. Blood cultures remained negative after 3 days. RADIOLOGY: She had multiple x-rays. Chest x-ray shows small bilateral pleural effusions with adjacent subsegmental cysts or possible infiltrates. Overall, similar appearance to 10/31/20. X-rays of pelvis with no acute findings. X- rays of both knees with no fractures noted. EKG: Sinus tachycardia at [address] or T-wave changes to indicate acute ischemia or acute coronary syndrome. HOSPITAL COURSE: Ms. King was admitted from the Emergency Room after sustaining a fall and was noted to be dehydrated. She was provided with fluids. Her electrolytes corrected nicely. She did have the wound over the left knee sutured in the ER by the ER physician without any complications. It was determined with Physical Therapy and further assessment the patient was not able to return home as she was a significant fall risk and a significantly weakened state, but stable. Therefore, arrangements were made to transfer the patient and admit to [facility] facility at [facility]. Her vital signs on discharge showed temperature 98, pulse 80, blood pressure 106/60, respirations 94% on room air with respiratory rate 16. PLAN: Ms. King was discharged and admitted to [facility] facility at [facility]. She was to have physical therapy evaluation and treatment. She was to have nutritional consultation for diet and usual diet as per protocol. No new medications were provided on discharge. She was to continue medications as per medical administration record. She was to followup with Dr. Jara and to call his office to establish an appointment. [facility] was to contact Dr. Jara' office with any questions. They were given instructions to return to the Emergency Room if they had any concerning symptoms or further questions. She was to encourage fluids to prevent dehydration. She will need to have her sutures of that left knee within the next 10 to 12 days. She was not started on any antibiotics as the wound looked to be without any infection, but will need to be closely watched and monitored. CONDITION ON DISCHARGE: Stable and improved. DISPOSITION: The patient was discharged and transferred to [facility]. #[id number]
== END 2020-11-03 11:15 | DRG 988 ==
LOC: ER 11:34 → MS 17:17 → OBSVTOIN 17:17
PROVIDERS: ADMIT Nurse Practitioner Acute Care; ATTEND Nurse Practitioner Family
PROC: 0JQP0ZZ Repair Left Lower Leg Subcutaneous Tissue and Fascia, Open Approach (ICD-10-PCS; principal; 2020-10-31)
DX: N17.9 Acute kidney failure, unspecified (principal); F03.91 Unspecified dementia, unspecified severity, with behavioral disturbance; E86.0 Dehydration; S81.012A Laceration without foreign body, left knee, initial encounter; E78.5 Hyperlipidemia, unspecified; G20 Parkinson's disease; M06.9 Rheumatoid arthritis, unspecified; K59.09 Other constipation; E87.6 Hypokalemia; L89.159 Pressure ulcer of sacral region, unspecified stage; M81.0 Age-related osteoporosis without current pathological fracture; Z88.0 Allergy status to penicillin; Z88.2 Allergy status to sulfonamides; Z20.822 Contact with and (suspected) exposure to COVID-19

== ENCOUNTER → 2020-11-05 | Outpatient (CLI) | payer MEDICARE, OTHER | LOC: GT 22:25 | PROVIDERS: ATTEND Family Medicine | DX: L08.9 Local infection of the skin and subcutaneous tissue, unspecified (principal) ==

== ENCOUNTER 2020-11-06 13:11 | Emergency (ER) | payer MEDICARE, OTHER ==
[2020-11-06] MEDS ORDERED: VANCOMYCIN HCL INJ 1,000 MG in SODIUM CHLORIDE 0.9% 250ML 250 ML IVPB ONE (13:15)
--- NOTE | 2020-11-06 13:23 | ED.PDOC ---
History of Present Illness - General Chief Complaint: Wound Recheck Stated Complaint: wound infection Time Seen by Provider: 11/06/20 13:15 Source: EMS Exam Limitations: clinical condition Additional Information: 79-year-old female, coming from retirement with history of dementia and Alzheimer's the presents to the ER because of left knee wound not improving. Patient was discharged from this hospital 3 days ago, according to EMS the wound has gotten progressively worse, patient was admitted here for this fall she did have some sutures placed but she still has them on, but the redness around the wound is allegedly getting worse - History of Present Illness Timing/Duration: getting worse Severity: moderate Improving Factors: nothing Worsening Factors: nothing Associated Symptoms: denies symptoms Allergies/Adverse Reactions: Allergies Penicillins Allergy (Unknown, Verified 10/31/20 18:39) Omeprazole [From Prilosec] Allergy (Verified 10/31/20 18:39) Pneumococcal Polysaccharides [From Pneumovax] Allergy (Verified 10/31/20 18:39) Sulfamethoxazole w/Trimethoprim [From Bactrim] Allergy (Verified 10/31/20 18:39) Tetanus Toxoid Allergy (Verified 10/31/20 18:39) Home Medications: Ambulatory Orders HYDROcodone 10MG/APAP 325MG [Ranier 10/325] 1 ea PO PRN PRN 03/25/13 Furosemide 20 mg PO MOWEFR 03/17/15 Multiple Vitamin [Multi Vitamin Daily] 1 tab PO DAILY 03/17/15 Spironolactone 100 mg PO DAILY 03/17/15 Tramadol HCl 50 mg PO QID PRN 03/17/15 Linaclotide [Linzess] 145 mcg PO DAILY 03/22/17 Allopurinol [Zyloprim] 100 mg PO DAILY 12/17/19 Carbidopa-Levodopa [Carbidopa/Levodopa 25-100 mg] 1 tab PO BEDTIME 12/17/19 Denosumab [Prolia] 60 mg SC [id number] 12/17/19 Fluticasone Propionate (Nasal) [Fluticasone Propionate] 50 mcg NA DAILY 12/17/19 Gabapentin 300 mg PO BID 12/17/19 Meloxicam 7.5 mg PO DAILY 12/17/19 Omeprazole 20 mg PO DAILY 12/17/19 Pantoprazole Tablet [Protonix] 40 mg PO DAILY 12/17/19 Prednisone 5 - 25 mg PO DAILY 12/17/19 Promethazine Tab [Phenergan Tablet] 12.5 mg PO Q4HR PRN 12/17/19 busPIRone HCL [Buspar] 10 mg PO BID 12/17/19 Citalopram Hydrobromide [Celexa] 20 mg PO DAILY 10/31/20 Furosemide [Lasix] 40 mg PO SUTUTHSA 10/31/20 Methylcellulose (Laxative) [Citrucel] 1,000 mg PO DAILY 10/31/20 Polyethylene Glycol 3350 [Miralax] 17 gm PO DAILY 10/31/20 Turmeric (Curcuma Longa) [Turmeric Curcumin] 500 mg PO BEDTIME 10/31/20 Review of Systems - Review of Systems Unable to Obtain Due To: dementia Past Medical History (General) - Patient Medical History Hx Seizures: No Hx Stroke: No Hx Dementia: No Hx Asthma: No Hx of COPD: Yes Hx Cardiac Disorders: No Hx Congestive Heart Failure: No Hx Pacemaker: No Hx Hypertension: No Hx Diabetes: No Hx Gastroesophageal Reflux: Yes Hx MRSA: No - Vaccination History Hx Tetanus, Diphtheria Vaccination: No - Allergic Hx Influenza Vaccination: Yes Hx Pneumococcal Vaccination: No - Allergic - Social History Hx Tobacco Use: Yes Hx Alcohol Use: No Hx Substance Use: No Hx Substance Use Treatment: No Hx Depression: No Hx Physical Abuse: No Hx Emotional Abuse: No - Female History Patient : No Family Medical History - Family History Mother Family History: Unknown Living Status: Hx Family Asthma: No Hx Family Congestive Heart Failure: Yes Hx Family Hypertension: No Hx Family Stroke: No Hx Cardiac Disease: No Hx Family Diabetes: No Hx Family Cancer: No Physical Exam - Physical Exam General Appearance: Well Developed, Well Groomed, Well Hydrated Eye Exam: bilateral normal Ears, Nose, Throat: hearing grossly normal Neck: non-tender, full range of motion, supple Respiratory: chest non-tender, lungs clear, normal breath sounds, no respiratory distress, no accessory muscle use Cardiovascular/Chest: normal peripheral pulses, regular rate, rhythm, no edema, no gallop, no JVD, no murmur Peripheral Pulses: radial,right: 2+, radial,left: 2+ Gastrointestinal/Abdominal: normal bowel sounds, non tender, soft, no organomegaly, no pulsatile mass Extremity: other - non healing soft tissue defect, with green discharge, mild dehiscense, sutures and steri strips sill present with associated erythema Neurologic: other - usual neurolgical baseline Skin Exam: normal color Lymphatic: no adenopathy Progress - Progress Progress: 79-year-old female presents to the ER because of a nonhealing left knee ulcer, patient has been seen in this hospital was discharged to the retirement with no obvious improvement patient was knee wound, very concerned because I think there might be some patella exposure, that he has had some bloody discharge erythema no foul-smelling or necrotic tissue visible on physical exam, I discussed with this hospitalist, I did order a dose of vancomycin on the blood pressure lactic acid, I suspect that this patient may need to be seen by orthopedic surgeon as well 11/06/20 13:36 Departure - Departure Clinical Impression: Open knee wound Qualifiers: Encounter type: subsequent encounter Laterality: left Qualified Code(s): S81.002D - Unspecified open wound, left knee, subsequent encounter Disposition: Admit Patient Departure Forms: ED Discharge - Pt. Copy, Patient Portal Self Enrollment Referrals: Umberto Jara III, MD [Primary Care Provider] - 1-2 Weeks Home Medications: Ambulatory Orders HYDROcodone 10MG/APAP 325MG [Ranier 10/325] 1 ea PO PRN PRN 03/25/13 Furosemide 20 mg PO MOWEFR 03/17/15 Multiple Vitamin [Multi Vitamin Daily] 1 tab PO DAILY 03/17/15 Spironolactone 100 mg PO DAILY 03/17/15 Tramadol HCl 50 mg PO QID PRN 03/17/15 Linaclotide [Linzess] 145 mcg PO DAILY 03/22/17 Allopurinol [Zyloprim] 100 mg PO DAILY 12/17/19 Carbidopa-Levodopa [Carbidopa/Levodopa 25-100 mg] 1 tab PO BEDTIME 12/17/19 Denosumab [Prolia] 60 mg SC .[id number] 12/17/19 Fluticasone Propionate (Nasal) [Fluticasone Propionate] 50 mcg NA DAILY 12/17/19 Gabapentin 300 mg PO BID 12/17/19 Meloxicam 7.5 mg PO DAILY 12/17/19 Omeprazole 20 mg PO DAILY 12/17/19 Pantoprazole Tablet [Protonix] 40 mg PO DAILY 12/17/19 Prednisone 5 - 25 mg PO DAILY 12/17/19 Promethazine Tab [Phenergan Tablet] 12.5 mg PO Q4HR PRN 12/17/19 busPIRone HCL [Buspar] 10 mg PO BID 12/17/19 Citalopram Hydrobromide [Celexa] 20 mg PO DAILY 10/31/20 Furosemide [Lasix] 40 mg PO SUTUTHSA 10/31/20 Methylcellulose (Laxative) [Citrucel] 1,000 mg PO DAILY 10/31/20 Polyethylene Glycol 3350 [Miralax] 17 gm PO DAILY 10/31/20 Turmeric (Curcuma Longa) [Turmeric Curcumin] 500 mg PO BEDTIME 10/31/20 Decision To Admit - Decistion To Admit Decision to Admit Reason: Admit from ER Decision to Admit Date: 11/06/20 Decision to Admit Time: 13:37
[2020-11-06 13:35] VITALS: O2SAT 97
--- NOTE | 2020-11-06 15:29 | CT ---
EXAM DESCRIPTION: Lower Extremity CLINICAL HISTORY: 79 years Female, left knee infection TECHNIQUE: This exam was performed according to our departmental dose-optimization program, which includes automated exposure control, adjustment of the mA and/or kV according to patient size and/or use of iterative reconstruction technique. COMPARISON: None at time of initial interpretation. FINDINGS: Anterior knee skin ulceration measuring approximately 3.0 x 4.2 cm. Infrapatellar recess soft tissue gas. No osseous erosion identified. No drainable fluid collection. Mild left knee osteoarthritis. Scattered vascular calcifications. No significant joint effusion. IMPRESSION: Anterior left knee skin ulceration with soft tissue gas in the infrapatellar recess. However no osseous erosion or drainable fluid collection identified. Electronically signed by: Oli Zepeda MD 11/06/2020 3:27 PM [facility]
[2020-11-06] MEDS ORDERED: ONDANSETRON INJ 4 MG/2 ML VIAL IV ONE (15:45)
[2020-11-06] MEDS ORDERED: MORPHINE SULFATE INJ 10 MG/ML VIAL IV ONE ×2 (15:45→16:33)
[2020-11-06 17:45] VITALS: BP 118/76; TEMP 97.4
== END 2020-11-06 17:35 | disposition still patient (30) ==
LOC: ER 13:11
DX: S81.012A Laceration without foreign body, left knee, initial encounter (principal); G30.9 Alzheimer's disease, unspecified; F02.80 Dementia in other diseases classified elsewhere, unspecified severity, without behavioral disturbance, psychotic disturbance, mood disturbance, and anxiety; J44.9 Chronic obstructive pulmonary disease, unspecified; K21.9 Gastro-esophageal reflux disease without esophagitis; Z87.891 Personal history of nicotine dependence; Z79.899 Other long term (current) drug therapy; Z88.7 Allergy status to serum and vaccine; Z88.0 Allergy status to penicillin; Z88.8 Allergy status to other drugs, medicaments and biological substances; Z88.2 Allergy status to sulfonamides; W22.09XA Striking against other stationary object, initial encounter
CPT/HCPCS: 36415; 73700; 80053; 83605; 85025; 85651; 87040; J2270; J2405; J3370; J7050